=== PATIENT | female | born 1940 | race Caucasian/White ===

== ENCOUNTER 2019-10-29 09:18 | Outpatient (CLI) | payer MEDICARE, OTHER, SELFPAY ==
--- NOTE | 2019-10-29 09:32 | USCV_ITS ---
Teodoro Kylah Age: 79 Gender: F : 1940 Exam Date: 10/29/2019 09:29 Ordering Phys: Jose L Acuña MD (Andy) ([email or web address] [place] Technologist: Bessie Gerardo [place] [facility] [place] RECHECK ON LT CCA STENOSIS Risk Factors: Unknown Previous Vascular Surgery: None Right Brachial BP: / Left Brachial BP: / Right Left Velocity (cm/s) Spectral Plaque Velocity (cm/s) Spectral Plaque Syst/Diast Broadening Syst/Diast Broadening 102.00/13.20 Prox CCA 48.70 / 9.90 79.40/ 12.10 Mid CCA 51.80 / 10.40 82.70/ 18.70 Distal CCA 47.70 / 9.30 68.00/ 25.30 Prox ICA 238.50/ 45.40 Hetro 72.50/ 13.40 Mid ICA 281.80/ 47.90 86.00/ 18.80 Distal ICA 90.70 / 21.90 71.60 ECA 50.80 Hetro 1.08 ICA/CCA 5.44 Antegrade Vertebral Antegrade 35.80/ 9.90 cm/s 27.10/ 9.20 cm/s [place] Subclavian Bi 67.40 65.40 FINDINGS Elevated left ICA velocity and increased left ICA/CCA ratio which have increased since the previous exam. CONCLUSIONS 1. Increased ICA/CCA ration of 5.44 consistent with left carotid stenosis of 80-99%. 2. Elelvated left ICA velocity consistent with carotid stenosis of 70-79%. 3. Minimal stenosis <50% of the right internal carotid artery. Dr. Sophie Irene MD (Electronically Signed) Final Date: 29 October 2019 11:34 S
== END 2019-10-29 09:19 | disposition home or self-care (01) ==
LOC: RAD 09:26
PROVIDERS: Family Provider Family Medicine; PCP Family Medicine; Visit Provider Thoracic Surgery (Cardiothoracic Vascular Surgery)
DX: I65.23 Occlusion and stenosis of bilateral carotid arteries (principal)
CPT/HCPCS: 93880

== ENCOUNTER 2019-11-06 08:18 | Outpatient (CLI) | payer MEDICARE, OTHER, SELFPAY ==
--- NOTE | 2019-11-06 08:30 | CT_ITS ---
WS: [id number] CT angio neck 20170 REASON FOR EXAM: carotid stenosis TECHNIQUE: Coronal and sagittal 2-D and MIP reformations. IV CONTRAST ADMINISTERED: Visipaque 75 mL. TOTAL EXAM DLP: 977.[address] scans at [facility] use at least one of these dose optimization techniques: automat ed exposure control; mA and/or kV adjustment per patient size (includes targeted exams where dose is matched to clinical indication); or iterative reconstruction. Findings: Reconstructed images of both carotid systems show the right side shows heavy arteriosclerot ic changes but does show good flow. The extracranial carotid artery fills poorly at the bifurcation superiorly. The left carotid system shows 60% stenosis of the internal carotid artery on the left. Poor filling o f the extra carotid artery is seen. The midportion of the right common carotid shows minimal stenosis. The [place] fill poorly and was not diagnostic. There is fluid density in the right maxillary antrum air-fluid levels are seen. The jugular system was normal. There is good flow seen into the circulation of the external carotids bilaterally although the miff i mages show this vessel poorly didn't demonstrate. At the bifurcation of the carotid on the left side there is evidence of 60% stenosis at the bifurcati on. The external carotid appears to be stenosed also. The [place] poorly filled during this study. And is nondiagnostic. CT/CT angio neck 82465 IMPRESSION: 60% stenosis of the left internal carotid artery There is evidence of plaque formation throughout the right common carotid bifur cation The external carotids bilaterally did not show well on the MIPS images. But the re appears to be good circulation surrounding the facial bones and orbits.
[2019-11-06 09:11] LABS: Blood Urea Nitrogen 14 mg/dL (8-23)
[2019-11-06] MEDS: iohexol 350 mg/mL 100 mL Btl IV (09:26)
== END 2019-11-06 08:19 | disposition home or self-care (01) ==
LOC: CT 08:19
PROVIDERS: PCP Family Medicine; Visit Provider Thoracic Surgery (Cardiothoracic Vascular Surgery)
DX: I65.22 Occlusion and stenosis of left carotid artery
CPT/HCPCS: 36415; 70498; 82565; 84520

== ENCOUNTER 2020-05-17 08:26 | Outpatient (CLI) | payer MEDICARE, OTHER, SELFPAY ==
--- NOTE | 2020-05-17 08:45 | USCV_ITS ---
Teodoro Kylah Age: 80 Gender: F : 1940 Exam Date: 05/17/2020 08:21 Ordering Phys: Jose L Acuña MD (Andy) [email or web address] [place] Technologist: Ciara Weinstein [place] [facility] [place]: STENOSIS Risk Factors: Previous Vascular Surgery: Right Brachial BP: / Left Brachial BP: / Right Left Velocity (cm/s) Spectral Plaque Velocity (cm/s) Spectral Plaque Syst/Diast Broadening Syst/Diast Broadening 77.20/ 12.10 Prox CCA 94.80 / 13.20 90.40/ 13.20 Mid CCA 86.00 / 11.00 86.00/ 17.60 Distal CCA 77.20 / 14.30 90.40/ 22.10 Prox ICA 313.30/ 71.20 105.80/23.20 Mid ICA 166.20/ 43.50 103.60/20.90 Distal ICA 189.50/ 48.20 88.20 ECA 90.40 1.17 ICA/CCA 3.64 Antegrade Vertebral Antegrade 59.50/ 11.00 cm/s 105.6/ 31.10 cm/s 0 Tri Subclavian Tri 105.6 0 FINDINGS Mild to moderate heterogeneous plaques of the right bifurcation and proximal internal carotid artery. Moderate to heavy heterogeneous plaques of the left bifurcation and internal carotid artery. Antegrade flow in the vertebral arteries bilaterally. Tortuous left vertebral artery Normal flow velocities in the external carotid arteries bilaterally Normal Doppler waveforms in the subclavian arteries bilaterally CONCLUSIONS Moderate to heavy heterogeneous plaques at the left bifurcation and internal carotid arterywith velocity elevation consistent with greater than 70% stenosis Mild to moderate heterogeneous plaques at the right bifurcation and proximal internal carotid arterywith velocity elevation consistent with 16-49% stenosis. Intimal thickening in the common carotid arteries bilaterally Compared to the study from 10/29/2019, there may not be a significant change Dr Surinder Gomez MD [facility] (Electronically Signed) Final Date: 19 May 2020 07:36 S
== END 2020-05-17 08:27 | disposition home or self-care (01) ==
LOC: US 08:27
PROVIDERS: PCP Family Medicine; Visit Provider Thoracic Surgery (Cardiothoracic Vascular Surgery)
DX: I65.23 Occlusion and stenosis of bilateral carotid arteries (principal)
CPT/HCPCS: 93880

== ENCOUNTER 2020-06-23 08:38 | Outpatient (CLI) | payer MEDICARE, OTHER, SELFPAY ==
--- NOTE | 2020-06-23 09:00 | CT_ITS ---
WS: [id number] CTA NECK TECHNIQUE: Contrast enhanced CTA of the neck with coronal and sagittal reformatted images and maximum intensity projection (MIP) images. NASCET criteria utilized. CLINICAL INFORMATION: I65.23 - Occlusion and stenosis of bilateral carotid arteries COMPARISON: CTA head neck November 06, 2019 and 07 05,019 DLP: 704.[address] scans at [facility] use at least one of these dose optimization techniques: automat ed exposure control; mA and/or kV adjustment per patient size (includes targeted exams where dose is matched to clinical indication); or iterative reconstruction. FINDINGS: RIGHT: Right common carotid artery is patent. Mild atheromatous plaque right carotid bulb extending i nto the ICA. No significant stenosis. ICA is patent to the skull base. LEFT: Left common carotid artery is patent. Moderate stenosis left proximal ICA measuring approximate ly 60%. Left ICA is patent to the skull base. Stenosis is unchanged from previous. Codominant and patent vertebral arteries bilaterally. Basilar artery is patent. Normal vascularity to the [employer] territory bilaterally. Mastoid air cells are well aerated. Paranasal sinuses are well aerated. Moderate spondylitic changes cervical spine. CT/CT angio neck 11865 IMPRESSION: 1. Left proximal ICA stenosis measuring approximately 60% unchanged from 2020. 2. No significant right ICA stenosis. 3. Codominant and patent vertebral arteries bilaterally. 4. Paranasal sinuses and mastoid air cells well aerated.
[2020-06-23 09:17] LABS: Blood Urea Nitrogen 13 mg/dL (8-23)
[2020-06-23] MEDS: iohexol 350 mg/mL 100 mL Btl IV (09:23)
== END 2020-06-23 08:39 | disposition home or self-care (01) ==
LOC: RADWPI 08:41
PROVIDERS: PCP Family Medicine; Visit Provider Thoracic Surgery (Cardiothoracic Vascular Surgery)
DX: I65.23 Occlusion and stenosis of bilateral carotid arteries (principal)
CPT/HCPCS: 70498; 82565; 84520; Q9967

== ENCOUNTER 2021-01-06 10:52 | Outpatient (CLI) | payer MEDICARE, OTHER, SELFPAY ==
--- NOTE | 2021-01-06 11:00 | USCV_ITS ---
Teodoro Kylah Age: 80 Gender: F : 1940 Exam Date: 01/06/2021 11:16 Ordering Phys: Jose L Acuña MD (Andy) ([email or web address] [place]) Technologist: Exam Location: [facility] [place] Indication: cca stenosis Risk Factors: None Previous Vascular Surgery: Right Brachial BP: / Left Brachial BP: / Right Left Velocity (cm/s) Spectral Plaque Velocity (cm/s) Spectral Plaque Syst/Diast Broadening Syst/Diast Broadening 72.80/ 12.10 Prox CCA 45.90 / 8.60 66.20/ 12.10 Mid CCA 42.30 / 7.10 60.60/ 12.10 Distal CCA 41.80 / 8.10 53.60/ 10.10 Hetro Prox ICA 293.20/ 70.40 Hetro 63.80/ 14.90 Mid ICA 439.40/ 96.70 PST Hetro 63.10/ 14.90 Distal ICA 96.70 / 17.00 PST Hetro 84.90 ECA 80.60 0.88 ICA/CCA 9.58 Antegrade Vertebral Antegrade 27.10/ 4.10 cm/s 41.60/ 9.90 cm/s Bi Subclavian Tri 72.00 76.00 FINDINGS Heavy heterogeneous plaques at the left bifurcation and proximal internal carotid artery Delayed peaking low velocity waveforms in the distal ICA on the left side Mild to moderate dense plaques at the right bifurcation and proximal internal carotid artery Antegrade flow in the vertebral arteries bilaterally Normal Doppler velocities in the external, subclavian and vertebral arteries bilaterally CONCLUSIONS Heavy heterogeneous plaques at the left bifurcation and proximal internal carotid artery with velocity elevation and Doppler features consistent with a greater than 70% stenosis. Mild to moderate dense plaques at the right bifurcation and proximal internal carotid artery internal carotid artery suggesting less than 50% stenosis No significant stenosis in the vertebral, subclavian and external carotid arteries bilaterally, based on the above. Compared to the study from 05/17/2020, the stenosis appears to be more severe on the left side Dr Surinder Gomez MD [facility] (Electronically Signed) Final Date: 07 January 2021 18:19 S
== END 2021-01-06 10:53 | disposition home or self-care (01) ==
PROVIDERS: PCP Family Medicine; Visit Provider Thoracic Surgery (Cardiothoracic Vascular Surgery)
DX: I65.23 Occlusion and stenosis of bilateral carotid arteries (principal)
CPT/HCPCS: 93880

== ENCOUNTER 2021-01-26 09:45 | Outpatient (CLI) | payer MEDICARE, OTHER, SELFPAY ==
--- NOTE | 2021-01-26 10:00 | CT_ITS ---
WS: [id number] CT ANGIOGRAM CAROTID ARTERIES HISTORY: I65.23 - Occlusion and stenosis of bilateral carotid arteries. TECHNIQUE: CT angiogram is performed of the carotid arteries. During arterial injection imaging is ob tained from the skull base to the aortic arch in 1.25 mm imaging. Coronal and sagittal reformats are submitted, MIP imaging also reviewed. Additional multiplanar reformats of the carotid arteries are chamorro bmitted. NASCET criteria utilized. All CT scans at [facility] use at least one of these dose optimization techniques: automated exposure control; mA and/or kV adjustment per patient size (includ es targeted exams where dose is matched to clinical indication); or iterative reconstruction. CONTRAST: Omnipaque 350; 75 mL IV. DLP: 704.72 mGycm COMPARISON: 06/23/2020 and carotid ultrasound 01/06/2021 Right carotid: Common carotid artery: Arises normally from the innominate artery. No significant plaque or stenosis. Internal carotid artery: Small amount of calcified plaque and intimal thickening at the bifurcation. No significant stenosis. External carotid artery: Patent. Left carotid: Common carotid artery: Arises normally from the aortic arch. No significant stenosis. Internal carotid artery: Calcified plaque and intimal thickening at the carotid bifurcation causing n arrowing and stenosis of the proximal ICA. Stenosis calculated at 70%. Mild increase as compared to t he prior CT angiogram. External carotid artery: Patent. Right vertebral artery: Unremarkable. Left vertebral artery: Unremarkable. Arises normally from the left subclavian artery. Subclavian arteries: No stenosis or abnormality identified. Upper thorax: Normal. Thyroid gland: Normal. Osseous structures: Mild degenerative disc disease and spondylosis throughout the cervical spine. Skull base: Negative. CT/CT angio neck 72755 IMPRESSION: 1. Proximal LEFT ICA stenosis 70%. Mild progression of the stenosis since 2020. 2. Minimal atherosclerosis RIGHT ICA with no significant stenosis.
[2021-01-26 10:35] LABS: Blood Urea Nitrogen 19 mg/dL (8-23)
[2021-01-26] MEDS: iohexol 350 mg/mL 100 mL Btl IV (10:46)
== END 2021-01-26 09:46 | disposition home or self-care (01) ==
PROVIDERS: PCP Family Medicine; Visit Provider Thoracic Surgery (Cardiothoracic Vascular Surgery)
DX: I65.23 Occlusion and stenosis of bilateral carotid arteries (principal)
CPT/HCPCS: 70498; 82565; 84520; Q9967

== ENCOUNTER 2021-08-10 13:09 | Outpatient (CLI) | payer MEDICARE, OTHER, SELFPAY ==
--- NOTE | 2021-08-10 13:30 | USCV_ITS ---
Teodoro Kylah Age: 81 Gender: F : 1940 Exam Date: 08/10/2021 13:40 Ordering Phys: Jose L Acuña MD (Andy) ([email or web address] [place] Technologist: NICK [place] [facility] [place]: Occlusion and stenosis of bilateral carotid arteries Risk Factors: Previous Vascular Surgery: Right Brachial BP: / Left Brachial BP: / Right Left Velocity (cm/s) Spectral Plaque Velocity (cm/s) Spectral Plaque Syst/Diast Broadening Syst/Diast Broadening 114.20/9.30 Prox CCA 60.70 / 10.30 66.80/ 10.10 Mid CCA 59.60 / 9.90 70.70/ 10.90 Distal CCA 62.70 / 8.40 64.20/ 14.80 Prox ICA 3.13 / 44.10 63.20/ 13.00 Mid ICA 311.50/ 48.50 66.40/ 14.30 Distal ICA 87.40 / 12.80 87.00 ECA 49.50 0.94 ICA/CCA 5.26 Antegrade Vertebral Antegrade 40.10/ 9.10 cm/s 45.40/ 10.50 cm/s Bi Subclavian Bi 70.80 67.60 FINDINGS Comparison:. 01/06/21. Marked elevation of velocity left ICA, similar to prior study. Calcified plaque in the proximal ICA. Minimal elevation right ICA velocity. Anegrade vertebral arteries. CONCLUSIONS Left ICA stenosis 70-99%. No interval change in stenosis since prior exam. Right ICA stenosis < 50%. Dr. Gila Carpenter DO (Electronically Signed) Final Date: 10 August 2021 14:45 S
== END 2021-08-10 13:10 | disposition home or self-care (01) ==
LOC: RAD 13:12
PROVIDERS: PCP Family Medicine; Visit Provider Thoracic Surgery (Cardiothoracic Vascular Surgery)
DX: I65.23 Occlusion and stenosis of bilateral carotid arteries (principal)
CPT/HCPCS: 93880

== ENCOUNTER → 2021-09-08 09:12 | Outpatient (BNVA) | payer MEDICARE, OTHER, SELFPAY | PROVIDERS: PCP Family Medicine; Visit Provider Thoracic Surgery (Cardiothoracic Vascular Surgery) | DX: I65.22 Occlusion and stenosis of left carotid artery (principal); Z79.82 Long term (current) use of aspirin; I10 Essential (primary) hypertension | CPT/HCPCS: 99213 ==

== ENCOUNTER → 2021-10-05 11:02 | Outpatient (BNVA) | payer MEDICARE, OTHER, SELFPAY | PROVIDERS: PCP Family Medicine; Visit Provider Internal Medicine Cardiovascular Disease | DX: R00.2 Palpitations (principal); I10 Essential (primary) hypertension; R42 Dizziness and giddiness; E78.2 Mixed hyperlipidemia; I65.22 Occlusion and stenosis of left carotid artery; F41.9 Anxiety disorder, unspecified | CPT/HCPCS: 99214 ==

== ENCOUNTER 2022-04-04 06:06 | Outpatient (CLI) | payer MEDICARE, OTHER, SELFPAY ==
--- NOTE | 2022-04-04 06:30 | USCV_ITS ---
Kylah Valerio Age: 81 Gender: F : 1940 Exam Date: 04/04/2022 06:16 Ordering Phys: Jose L Acuña MD (Andy) ([email or web address] [place]) Technologist: Scott Stapleton Exam [place] [facility] [place] Indication: lt ica stenosis Risk Factors: Previous Vascular Surgery: Right Brachial BP: / Left Brachial BP: / Right Left Velocity (cm/s) Spectral Plaque Velocity (cm/s) Spectral Plaque Syst/Diast Broadening Syst/Diast Broadening 85.45/ 12.65 Prox CCA 70.60 / 15.40 80.50/ 17.60 Mid CCA 66.20 / 8.80 87.10/ 17.60 Distal CCA 52.90 / 11.00 93.70/ 24.30 Prox ICA 373.10/ 88.30 Marked Hetro 87.65/ 20.40 Mid ICA 430.70/ 75.20 Marked Hetro 95.90/ 20.95 Distal ICA 122.30/ 30.60 101.40 ECA 87.10 1.19 ICA/CCA 6.10 Antegrade Vertebral Antegrade 56.00/ 13.00 cm/s 89.90/ 28.80 cm/s [place] Subclavian Bi 71.70 104.3 0 CONCLUSIONS Right ICA stenosis <50%. Mild atheromatous plaque right carotid bulb/ICA. Left ICA stenosis 70-99%. Severe atheromatous plaque left carotid bulb/ICA. Recommend CTA. Velocities progressed since 08/10/21 Normal antegrade Doppler flow noted in the right vertebral artery. Normal antegrade Doppler flow noted in the left vertebral artery. Joe Gibson MD (Electronically Signed) Final Date: 04 April 2022 10:04 S
== END 2022-04-04 06:07 | disposition home or self-care (01) ==
LOC: RAD 06:08
PROVIDERS: PCP Family Medicine; Visit Provider Thoracic Surgery (Cardiothoracic Vascular Surgery)
DX: I65.23 Occlusion and stenosis of bilateral carotid arteries (principal)
CPT/HCPCS: 93880

== ENCOUNTER → 2022-04-05 14:18 | Outpatient (BNVA) | payer MEDICARE, OTHER, SELFPAY | PROVIDERS: PCP Family Medicine; Visit Provider Thoracic Surgery (Cardiothoracic Vascular Surgery) | DX: I65.22 Occlusion and stenosis of left carotid artery (principal); I10 Essential (primary) hypertension | CPT/HCPCS: 99213 ==

== ENCOUNTER → 2022-07-05 13:41 | Outpatient (BNVA) | payer MEDICARE, OTHER, SELFPAY | PROVIDERS: PCP Family Medicine; Visit Provider Internal Medicine Cardiovascular Disease | DX: R00.2 Palpitations (principal); I10 Essential (primary) hypertension; E78.2 Mixed hyperlipidemia; I65.22 Occlusion and stenosis of left carotid artery; F41.9 Anxiety disorder, unspecified | CPT/HCPCS: 99214; Q3014 ==

== ENCOUNTER 2022-09-15 14:56 | Outpatient (CLI) | payer MEDICARE, OTHER, SELFPAY ==
--- NOTE | 2022-09-15 15:07 | USCV_ITS ---
Teodoro Kylah Age: 82 Gender: F : 1940 Exam Date: 09/15/2022 15:28 Ordering Phys: Jose L Acuña MD (Andy) ([email or web address] [place] Technologist: [place] [facility] [place]: cca disease on lt Risk Factors: Previous Vascular Surgery: Right Brachial BP: / Left Brachial BP: / Right Left Velocity (cm/s) Spectral Plaque Velocity (cm/s) Spectral Plaque Syst/Diast Broadening Syst/Diast Broadening 81.60/ 9.90 Prox CCA 78.90 / 11.80 69.50/ 16.50 Mid CCA 67.70 / 14.50 71.70/ 13.20 Hetro Distal CCA 74.30 / 17.70 Hetro 95.90/ 22.10 Prox ICA 318.10/ 42.10 Hetro 102.50/23.20 Mid ICA 351.10/ 49.70 100.30/18.70 Distal ICA 106.80/ 13.70 86.00 ECA 80.30 1.26 ICA/CCA 4.45 Antegrade Vertebral Antegrade 44.70/ 11.80 cm/s 52.10/ 13.70 cm/s Tri Subclavian Tri 47.30 73.50 FINDINGS comparison 04/11 Velocities are similar to previous CONCLUSIONS Right ICA stenosis <50%. Moderate atheromatous plaque right carotid bulb/ICA. Left ICA stenosis 70-99%. Severe atheromatous plaque left carotid bulb/ICA. Normal antegrade Doppler flow noted in the right vertebral artery. Normal antegrade Doppler flow noted in the left vertebral artery. Joe Gibson MD (Electronically Signed) Final Date: 15 September 2022 16:11 S
== END 2022-09-15 14:57 | disposition home or self-care (01) ==
LOC: RAD 15:00
PROVIDERS: PCP Family Medicine; Visit Provider Thoracic Surgery (Cardiothoracic Vascular Surgery)
DX: I65.22 Occlusion and stenosis of left carotid artery (principal)
CPT/HCPCS: 93880

== ENCOUNTER → 2023-01-31 10:31 | Outpatient (BNVA) | payer MEDICARE, OTHER, SELFPAY | PROVIDERS: PCP Family Medicine; Visit Provider Internal Medicine Cardiovascular Disease | DX: R00.2 Palpitations (principal); I10 Essential (primary) hypertension; E78.2 Mixed hyperlipidemia; I65.22 Occlusion and stenosis of left carotid artery; F41.9 Anxiety disorder, unspecified | CPT/HCPCS: 99214 ==

== ENCOUNTER 2023-02-28 11:31 | Outpatient (CLI) | payer MEDICARE, OTHER, SELFPAY ==
--- NOTE | 2023-02-28 | USCV_ITS ---
Teodoro Kylah Age: 82 Gender: F : 1940 Exam Date: 02/28/2023 11:57 Ordering Phys: Jose L Acuña MD (Andy) ([email or web address] [place]) Technologist: CT Exam Location: [facility] Indication: stenosis Risk Factors: Previous Vascular Surgery: Right Brachial BP: / Left Brachial BP: / Right Left Velocity (cm/s) Spectral Plaque Velocity (cm/s) Spectral Plaque Syst/Diast Broadening Syst/Diast Broadening 80.50/ 14.30 Prox CCA 76.10 / 14.30 85.40/ 15.40 Mid CCA 66.70 / 11.90 62.70/ 13.80 Distal CCA 45.80 / 10.60 51.40/ 14.60 Prox ICA 221.70/ 51.30 42.50/ 12.70 Mid ICA 131.90/ 23.50 60.90/ 14.00 Distal ICA 68.40 / 13.10 57.70 ECA 64.00 0.71 ICA/CCA 2.91 Antegrade Vertebral Antegrade 34.10/ 8.40 cm/s 54.80/ 12.80 cm/s Bi Subclavian Bi 73.00 70.40 FINDINGS Comparison:. 09/15/22 Left ICA velocity slightly decreased as compared to the prior exam. No change right ICA. Bilateral atherosclerotic plaque in the bifurcations. Antegrade vertebral arteries. CONCLUSIONS Left ICA stenosis 70-99%. Velocity decrease slightly since the prior exam. Stenosis closer to 70%. Right ICA stenosis < 50%. Dr. Gila Carpenter DO (Electronically Signed) Final Date: 28 February 2023 13:40 S
== END 2023-02-28 11:32 | disposition home or self-care (01) ==
LOC: RAD 11:35
PROVIDERS: PCP Family Medicine; Visit Provider Thoracic Surgery (Cardiothoracic Vascular Surgery)
DX: I65.23 Occlusion and stenosis of bilateral carotid arteries (principal)
CPT/HCPCS: 93880; 99213

== ENCOUNTER 2023-02-28 11:45 | Outpatient (CLI) | payer MEDICARE, OTHER, SELFPAY ==
--- NOTE | 2023-02-28 11:45 | USCV_ITS ---
Teodoro Kylah Age: 82 Gender: F : 1940 Exam Date: 02/28/2023 11:57 Ordering Phys: Jose L Acuña MD (Andy) ([email or web address] [place] Technologist: CT Exam Location: [facility] [place] Indication: stenosis Risk Factors: Previous Vascular Surgery: Right Brachial BP: / Left Brachial BP: / Right Left Velocity (cm/s) Spectral Plaque Velocity (cm/s) Spectral Plaque Syst/Diast Broadening Syst/Diast Broadening 80.50/ 14.30 Prox CCA 76.10 / 14.30 85.40/ 15.40 Mid CCA 66.70 / 11.90 62.70/ 13.80 Distal CCA 45.80 / 10.60 51.40/ 14.60 Prox ICA 221.70/ 51.30 42.50/ 12.70 Mid ICA 131.90/ 23.50 60.90/ 14.00 Distal ICA 68.40 / 13.10 57.70 ECA 64.00 0.71 ICA/CCA 2.91 Antegrade Vertebral Antegrade 34.10/ 8.40 cm/s 54.80/ 12.80 cm/s Bi Subclavian Bi 73.00 70.40 FINDINGS Comparison:. 09/15/22 Left ICA velocity slightly decreased as compared to the prior exam. No change right ICA. Bilateral atherosclerotic plaque in the bifurcations. Antegrade vertebral arteries. CONCLUSIONS Left ICA stenosis 70-99%. Velocity decrease slightly since the prior exam. Stenosis closer to 70%. Right ICA stenosis < 50%. Dr. Gila Carpenter DO (Electronically Signed) Final Date: 28 February 2023 13:40 S
== END 2023-02-28 11:46 | disposition home or self-care (01) ==
LOC: RAD 05-24 13:44
PROVIDERS: PCP Family Medicine; Visit Provider Thoracic Surgery (Cardiothoracic Vascular Surgery)
DX: I65.23 Occlusion and stenosis of bilateral carotid arteries (principal)
CPT/HCPCS: 93880

== ENCOUNTER → 2023-03-29 12:42 | Outpatient (BNVA) | payer MEDICARE, OTHER, SELFPAY | PROVIDERS: PCP Family Medicine; Visit Provider Thoracic Surgery (Cardiothoracic Vascular Surgery) | DX: I65.22 Occlusion and stenosis of left carotid artery (principal); I10 Essential (primary) hypertension | CPT/HCPCS: 99213 ==

== ENCOUNTER → 2024-02-25 08:42 | Outpatient (BNVA) | payer MEDICARE, OTHER, SELFPAY | PROVIDERS: PCP Family Medicine; Visit Provider Internal Medicine Cardiovascular Disease | DX: I10 Essential (primary) hypertension (principal); I65.22 Occlusion and stenosis of left carotid artery; E78.2 Mixed hyperlipidemia | CPT/HCPCS: 99214 ==

== ENCOUNTER 2024-03-10 07:44 | Outpatient (CLI) | payer MEDICARE, OTHER, SELFPAY ==
--- NOTE | 2024-03-10 08:00 | CTR_ITS ---
PROCEDURE INFORMATION: Exam: CTA Neck With Contrast Exam date and time: 03/10/2024 8:22 AM Age: 83 years old Clinical indication: Condition or disease; Occlusion or stenosis of cerebral arteries; Additional info: Bilateral carotid stenosis TECHNIQUE: Imaging protocol: Computed tomographic angiography of the neck with contrast. Exam focused on the cervical segments of the vasculature. 3D rendering (Not supervised by radiologist): MIP and/or 3D reconstructed images were created by the technologist. Radiation optimization: All CT scans at this facility use at least one of these dose optimization techniques: automated exposure control; mA and/or kV adjustment per patient size (includes targeted exams where dose is matched to clinical indication); or iterative reconstruction. Contrast material: OMNI 350; Contrast volume: 100 ml; Contrast route: INTRAVENOUS (IV); COMPARISON: CT angio neck [id number] 01/26/2021 10:40 AM RADIATION DOSE METRICS: Total DLP (mGy-cm): 154.92 FINDINGS: Right common carotid artery: No stenosis. No dissection or occlusion. Right internal carotid artery: Minimal plaque. No high-grade stenosis. Right external carotid artery: Minimal plaque. No high-grade stenosis. Left common carotid artery: No stenosis. No dissection or occlusion. Left internal carotid artery: Moderate to severe plaque involving the carotid bulb and proximal left internal carotid artery. Estimated stenosis 70%. Findings are similar to that seen on prior exam. Left external carotid artery: Minimal plaque. No high-grade stenosis. Right vertebral artery: No stenosis. No dissection or occlusion. Left vertebral artery: No stenosis. No dissection or occlusion. Paranasal sinuses: There is minimal mucosal thickening involving the paranasal sinuses. No air-fluid levels are identified. Soft tissues: Normal. No significant soft tissue swelling. Bones/joints: No acute fracture. CT/CT angio neck [id number] IMPRESSION: 1. Moderate to severe plaque involving the left carotid bulb and proximal left internal carotid artery. Estimated stenosis is 70%. Findings are similar to that seen on prior exam from 01/26/2021. REFERENCES: NASCET CRITERIA. The degree of stenosis in the cervical segment of the internal carotid artery is based on NASCET criteria. Normal is no stenosis. Mild is less than 50% stenosis. Moderate is 50-69% stenosis. Severe is 70% to 99% stenosis. Total occlusion is no detectable patent lumen.
[2024-03-10] MEDS: iohexol 350 mg/mL 500 mL Btl (per mL) IV (08:35)
[2024-03-10 09:20] LABS: Blood Urea Nitrogen 18 mg/dL (8-23)
== END 2024-03-10 07:45 | disposition home or self-care (01) ==
LOC: RAD 07:45
PROVIDERS: PCP Family Medicine; Visit Provider Internal Medicine Cardiovascular Disease
DX: I65.22 Occlusion and stenosis of left carotid artery (principal)
CPT/HCPCS: 70498; 82565; 84520

== ENCOUNTER 2024-06-20 08:00 | Oncology outpatient (recurring) (ONCR) | payer MEDICARE, OTHER, SELFPAY ==
[2024-06-11 08:27] VITALS: BP 122/73; PULSE 56; RESP 16; TEMP 36.4; O2SAT 99
[2024-06-11] MEDS: iron sucrose 200 MG in sodium chloride 0.9% 50 ML 240 MG IV (08:33)
[2024-06-11 09:17] VITALS: BP 120/68; PULSE 55; RESP 16; TEMP 36.4; O2SAT 99
[2024-06-13 08:05] VITALS: BP 147/73; PULSE 65; RESP 17; TEMP 36.7; O2SAT 99
[2024-06-13] MEDS: iron sucrose 200 MG in sodium chloride 0.9% 50 ML 240 MG IV (08:43)
[2024-06-13 09:30] VITALS: BP 144/70; PULSE 54; RESP 18; TEMP 36.5; O2SAT 98
[2024-06-16 14:00] VITALS: BP 127/74; PULSE 67; RESP 16; TEMP 35.9; O2SAT 99
[2024-06-16] MEDS: iron sucrose 200 MG in sodium chloride 0.9% 50 ML 240 MG IV (14:01)
[2024-06-16] MEDS: sodium chloride 0.9% 250 ML 75 ML IV (14:01)
[2024-06-16 14:21] VITALS: BP 118/76; PULSE 58; RESP 16; TEMP 36.3; O2SAT 98
[2024-06-18 08:00] VITALS: BP 121/69; PULSE 60; RESP 18; TEMP 36.6; O2SAT 99
[2024-06-18] MEDS: iron sucrose 200 MG in sodium chloride 0.9% 50 ML 120 MG IV (08:10)
[2024-06-18 08:53] VITALS: BP 135/70; PULSE 78; RESP 18; TEMP 36.6; O2SAT 99
[2024-06-20] MEDS: iron sucrose 200 MG in sodium chloride 0.9% 50 ML 240 MG IV (08:20)
[2024-06-20 08:46] VITALS: BP 126/66; PULSE 61; RESP 16; TEMP 36.3; O2SAT 99
== END 2024-06-20 23:59 | disposition home or self-care (01) ==
PROVIDERS: PCP Family Medicine; Visit Provider Family Medicine
DX: Z53.9 Procedure and treatment not carried out, unspecified reason (principal); D50.8 Other iron deficiency anemias; Z79.899 Other long term (current) drug therapy
CPT/HCPCS: 96365; J1756; J7050

== ENCOUNTER → 2025-02-17 15:18 | Outpatient (BNVA) | payer MEDICARE, OTHER, SELFPAY | PROVIDERS: PCP Family Medicine; Visit Provider Internal Medicine Cardiovascular Disease | DX: I65.22 Occlusion and stenosis of left carotid artery (principal); I10 Essential (primary) hypertension; E78.5 Hyperlipidemia, unspecified; R00.2 Palpitations | CPT/HCPCS: 99214 ==

== ENCOUNTER 2025-04-27 13:21 | Inpatient (IN) | payer MEDICARE, OTHER, SELFPAY ==
[2025-04-27 13:22] VITALS: BP 143/45; PULSE 66; RESP 16; TEMP 36.6; O2SAT 99; BMI 23.2
--- NOTE | 2025-04-27 13:27 | XR_ITS ---
WS: [id number] XR hip LT 2-3V wo/w pel* [id number] REASON FOR EXAM: trauma FINDINGS: Mildly displaced intertrochanteric and trochanteric fracture which involves the lesser trochanter which is not significantly displaced. XR/XR hip LT 2-3V wo/w pel* [id number] IMPRESSION: Left hip fracture as above.
--- NOTE | 2025-04-27 13:46 | XR_ITS ---
WS: [id number] XR chest 1V portable [id number] REASON FOR EXAM: dyspnea/cough FINDINGS: The chest is similar to the previous examination of 06/27/2018. Mild tortuosity and ectasia of the thoracic aorta. Normal heart size. Calcified granulomatous disease bilaterally. No acute pulmonary parenchymal or pleural abnormality. Moderate degenerative spondylosis in the thoracic spine. XR/XR chest 1V portable [id number] IMPRESSION: Stable chest without acute abnormality.
[2025-04-27 14:16] LABS: Hematocrit 35.4 % (36-47); Hemoglobin 11.80 g/dL (11.27-16.99); Mean Corpuscular HGB Conc 33.3 g/dL (30-55); Mean Corpuscular Hemoglobin 31.5 pg (27-33); Mean Corpuscular Volume 94.4 fl (85-98); Nucleated Red Blood Cells % 0 %; Platelet Count 258 10^3/cmm (157-399); Red Blood Count 3.75 10^6/uL (3.85-5.65); White Blood Count 11.06 10^3/uL (3.29-11.43)
[2025-04-27 14:28] LABS: INR 0.90 (0.8-1.2); Partial Thromboplastin Time 28.6 SECONDS (23.9-36.7); Prothrombin Time 12.80 SECONDS (12.1-14.9)
[2025-04-27 14:33] LABS: Alanine Aminotransferase 20 U/L (0-33); Albumin Level 4.6 g/dL (3.5-5.2); Alkaline Phosphatase 118 U/L (35-105); Anion Gap 12.0 (5-19); Aspartate Amino Transferase 29 U/L (0-32); Blood Urea Nitrogen 16 mg/dL (8-23); Calcium 9.6 mg/dL (8.5-10.5); Carbon Dioxide 29 mmol/L (22-29); Chloride 98 mmol/L (98-107); Globulin 3.0 g/dL (1.3-4.6); Glucose 150 mg/dL (65-115); Osmolality Calculated 284 mOsm/kg (285-295); Potassium 4.0 mmol/L (3.5-5.1); Sodium 135 mmol/L (136-145); Total Protein 7.6 g/dL (6.6-8.7)
[2025-04-27 14:34] LABS: Glucose Urine UA Negative (Normal); Nitrate Urine Negative (Negative); Specific Gravity, Urine 1.007 (1.005-1.030)
[2025-04-27 14:39] LABS: Add Urine Microscopic? YES
--- NOTE | 2025-04-27 14:56 | PM.HP ---
Providers/Chief Complaint Primary Care Provider: Robert Rutledge MD Chief Complaint: fall - left hip pain History of Present Illness Kylah Valerio is a 85 year old female with a past medical history of hypertension, hyperlipidemia, carotid artery stenosis, glaucoma who fell earlier today sustaining a mildly displaced left intertrochanteric and trochanteric fracture. Patient was seen and treated in the ER by provider Dr. Maldonado who contacted orthopedic surgeon who graciously agrees for consultation. Patient is not on any anticoagulation, does take a baby aspirin at night. Patient denies sustaining injuries in the other place, did not hit her head and did not lose consciousness. Patient continues to endorse left hip pain and inability to move her leg without any pain. Patient denies current chest pain, shortness of breath, nausea, vomiting, diarrhea, abdominal pain, dark or tarry stools, any type of bleeding, recent illness, difficulty urinating, or syncope. Patient states that she ate at 1130 today, unsure whether they will take her to surgery this afternoon or tomorrow morning. Patient is agreeable to surgical interventions, admission with continued medical management. Review of Systems General: Reports: 10 or more systems reviewed and unremarkable except in HPI and below Medications/Allergies Home Medications ?Medication ?Instructions ?Recorded ?Confirmed ?Last Taken ?Type aspirin 81 mg tablet,delayed 81 mg PO DAILY 11/03/19 04/27/25 04/26/25 20:00 History release lovastatin 20 mg tablet 10 mg PO DAILY 11/03/19 04/27/25 04/27/25 08:00 History ascorbic acid (vitamin C) 500 mg 500 mg PO DAILY 07/05/22 04/27/25 04/27/25 08:00 History capsule magnesium oxide 250 mg PO DAILY 07/05/22 04/27/25 04/27/25 08:00 History cetirizine 10 mg capsule (All Day 10 mg PO DAILY PRN allergies 02/25/24 04/27/25 Unknown History Allergy (cetirizine)) metoprolol tartrate 25 mg tablet 12.5 mg PO BID 02/25/24 04/27/25 04/27/25 08:00 History amlodipine 10 mg tablet 10 mg PO DAILY #90 tabs 02/17/25 04/27/25 04/27/25 08:00 Rx latanoprost 0.005 % eye drops 1 drp ophthalmic (eye) DAILY 02/17/25 04/27/25 04/26/25 History cholecalciferol (vitamin D3) 50 50 mcg PO DAILY 04/27/25 04/27/25 04/26/25 20:00 History mcg (2,000 unit) tablet (Vitamin D3) vhdrrcdhshjj-ewiohwao-crowoni-folic 1 tab PO DAILY 04/27/25 04/27/25 04/27/25 08:00 History acid 400 mcg-vit K1 20 mcg tablet Allergies Allergy/AdvReac Type Severity Reaction Status Date / Time Sulfa (Sulfonamide Allergy Unknown Verified 04/27/25 13:28 Antibiotics) levofloxacin (From Levaquin) AdvReac Mild Thrush Verified 04/27/25 13:28 PFSH Acute PFSH: Medical History (Updated 04/27/25 @ 15:04 by Nataly Thakur NP) Carotid artery stenosis Anxiety HTN (hypertension) Hyperlipidemia Family History Other Stroke Social History Smoking and tobacco/nicotine status: never used tobacco/nicotine Alcohol intake: never Substance/Drug Use: never Vitals/I&O/Wt Last Vital Signs Temp 97.9 F 04/27/25 13:22 Pulse 66 04/27/25 13:22 Resp 16 04/27/25 13:22 BP 143/45 04/27/25 13:22 Pulse Ox 99 04/27/25 13:22 O2 Del Method Room Air 04/27/25 13:22 04/26/25 04/27/25 04/27/25 22:59 06:59 14:59 Intake Total 0 / 0 Balance 0 / 0 Weight last 48 hrs Weight 52.163 kg Physical Exam Narrative: Well-groomed 85-year-old female laying in bed with left hip pain with movement but otherwise in no apparent distress. Const: COMMON NORMALS: no acute distress, patient oriented x3, alert and well nourished HENMT: COMMON NORMALS: normocephalic, Normal external nose present, moist oral mucous membranes and dentition normal Eye: COMMON NORMALS: Equal, round and reactive pupils present Neck/C-Spine: COMMON NORMALS: full ROM and no lymphadenopathy Resp: COMMON NORMALS: normal respiratory effort and clear to auscultation bilaterally Cardio: COMMON NORMALS: no JVD, regular rate, regular rhythm, S1 normal heart sound present and S2 normal heart sound present GI: COMMON NORMALS: Normal to inspection, nondistended, normoactive bowel sounds present Extremity: NARRATIVE EXTREMITY EXAM: Left leg with outward rotation mildly shortened compared to right leg left hip tenderness to palpation Neuro: COMMON NORMALS: patient oriented x3 and CN's II-XII intact bilaterally Psych: COMMON NORMALS: mental status grossly normal Skin: COMMON NORMALS: no rashes or lesions noted and turgor normal Urinary Catheter Management: Estes: Cath Placed During This Visit: yes Urinary Catheter Date of Insertion: 04/27/25 Urinary Catheter Time of Insertion: 14:06 Data 04/27/25 14:04 04/27/25 14:04 A&P Assessment and plan 1. Intertrochanteric fracture of left hip: 2. HTN (hypertension): 3. Glaucoma: 4. Hyperlipidemia: 5. Carotid artery stenosis: 6. Other iron deficiency anemias: Plan: Left hip intertrochanteric and trochanteric fracture - Non-weight bearing Left leg - Fall precautions - Greatly appreciate orthopedic surgical management with - Multi-modal pain control - Appreciate physical therapy and Occupational Therapy evaluation and recommendations postoperatively Essential hypertension - Admitting blood pressure 143/45 - Resume home medications metoprolol, amlodipine, lovastatin Glaucoma - Continue home dosing timolol Hx of Iron defeciency anemia - Pending iron/TIBC - Admitting hemoglobin 11.80 - Monitor and transfuse for hemoglobin less than 7.0 Hx of Hyperlipidemia Carotid stenosis - Does not take statin - Daily ASA 81mg, taken last night VTE PPx: SCDs, ASA GI PPx: PPI CODE STATUS: Full code PDMP PDMP Reviewed: Last Reviewed 04/27/25 16:06 by Nataly Thakur NP Attestations Medical Necessity Statement*: Patient will be admitted inpatient with expectation of greater than 2 midnights secondary to hip fracture, orthopedic surgical intervention, PT/OT postoperatively, pain control and medical management. and High Time for a total of 75 minutes, includes reviewing past or interval history, examining/interviewing patient, placing orders, counseling patient/family/other support, updating patient/family/other support, discussing plan of care with staff, communicating with other healthcare providers, documenting encounter and coordinating care Diagnoses Intertrochanteric fracture of left hip S72.142A HTN (hypertension) I10 Glaucoma H40.9 Hyperlipidemia E78.5 Carotid artery stenosis I65.29 Other iron deficiency anemias D50.8
[2025-04-27 15:05] VITALS: BP 138/41; O2SAT 96
--- NOTE | 2025-04-27 15:19 | W.ED.EXTPRO ---
HPI - Extremity Problem General: Chief complaint: Extremity Injury, Lower Stated complaint: fall - left hip pain Time Seen by Provider: 04/27/25 13:26 History of Present Illness: 85-year-old female presents emergency room after a fall. She fell at home while she was trying to crush her canned by standing on it. She initially stood up 1 foot then went to stand on it with 2 feet and eventually bowel. She is complaining of severe left hip pain unable to move her hip she crawled back into her home proceeded been out in her garage on a ramp when she fell. She was able to contact family members who ultimately called EMS she denies any other injury did not strike her head no loss consciousness no neck pain no injury to her wrist or shoulders. Associated symptoms: Deny chest pain, fever(s) or rash Related Data Home Medications ?Medication ?Instructions ?Recorded ?Confirmed aspirin 81 mg tablet,delayed 81 mg PO DAILY 11/03/19 04/27/25 release lovastatin 20 mg tablet 10 mg PO DAILY 11/03/19 04/27/25 ascorbic acid (vitamin C) 500 mg 500 mg PO DAILY 07/05/22 04/27/25 capsule magnesium oxide 250 mg PO DAILY 07/05/22 04/27/25 cetirizine 10 mg capsule (All Day 10 mg PO DAILY PRN allergies 02/25/24 04/27/25 Allergy (cetirizine)) metoprolol tartrate 25 mg tablet 12.5 mg PO BID 02/25/24 04/27/25 latanoprost 0.005 % eye drops 1 drp ophthalmic (eye) DAILY 02/17/25 04/27/25 cholecalciferol (vitamin D3) 50 50 mcg PO DAILY 04/27/25 04/27/25 mcg (2,000 unit) tablet (Vitamin D3) pkcchdlypmvm-pgnpjerp-dwiscwr-folic 1 tab PO DAILY 04/27/25 04/27/25 acid 400 mcg-vit K1 20 mcg tablet Previous Rx's ?Medication ?Instructions ?Recorded amlodipine 10 mg tablet 10 mg PO DAILY #90 tabs 02/17/25 Allergies Allergy/AdvReac Type Severity Reaction Status Date / Time Sulfa (Sulfonamide Allergy Unknown Verified 04/27/25 13:28 Antibiotics) levofloxacin (From Levaquin) AdvReac Mild Thrush Verified 12/08/25 13:28 Review of Systems Const: Denies: fever(s) or chills Card: Denies: chest pain Resp: Denies: dyspnea GI: Denies: abdominal pain : Denies: dysuria, urinary frequency or urinary urgency Musc: Reports: joint pain; Denies: neck pain or back pain Skin/Breast: Denies: rash PFSH ED PFSH: Medical History Carotid artery stenosis Anxiety HTN (hypertension) Hyperlipidemia Family History Other Stroke Social History Smoking and tobacco/nicotine status: never used tobacco/nicotine Alcohol intake: never Substance/Drug Use: never Physical Exam Const: GENERAL APPEARANCE: cooperative ORIENTATION/CONSCIOUSNESS: Yes awake, Yes oriented to person, Yes oriented to place and Yes oriented to time HENMT: COMMON NORMALS: normocephalic, atraumatic and hearing grossly normal bilaterally HEAD & SCALP: normocephalic and atraumatic Resp: COMMON NORMALS: normal respiratory effort, No retractions, No use of accessory muscles and clear to auscultation bilaterally AUSCULTATION: clear to auscultation bilaterally Cardio: COMMON NORMALS: regular rate, regular rhythm and No murmurs present (Cardio) RATE: regular rate RHYTHM: regular rhythm GI: COMMON NORMALS: Soft to palpation and No hepatosplenomegaly present AUSCULTATION: Yes normoactive bowel sounds PALPATION: Yes Soft to palpation, No Tenderness to palpation present (GI), No Guarding due to palpation present (GI) and Yes No hepatosplenomegaly present Extremity: COMMON NORMALS: capillary refill normal, no clubbing, cyanosis or edema, no calf tenderness and no pedal edema OTHER: External rotation left leg femoral pulse and dorsalis pedis pulse normal sensation normal unable to move the left hip Neuro: SENSORIUM/ORIENTATION: Yes oriented to person, Yes oriented to place and Yes oriented to time Skin: COMMON NORMALS: no rashes or lesions noted GENERAL SKIN EXAM: no rashes or lesions noted Course Vital Signs: Vital signs: Vital Signs Temperature 97.8 F 04/28/25 07:46 Pulse Rate 63 04/28/25 07:46 Respiratory Rate 18 04/28/25 07:46 Blood Pressure 119/67 04/28/25 07:46 Pulse Oximetry 94 04/28/25 07:46 Oxygen Delivery Me thod Room Air 04/28/25 07:46 Oxygen Flow Rate 2 04/28/25 06:08 MDM - Extremity (Nontraumatic) Medical Decision Making Medical decision making Social determinants: Good social support from local family members does live alone I reviewed the patient's medical record. I reviewed the patient's current home meds. Alternate historians: Daughter at the bedside Differential diagnosis: Left hip fracture versus contusion Lab Review: Labs reviewed mild anemia no other significant findings chemistry CBC UA reviewed Imaging: Chest x-ray normal left hip x-ray shows intertrochanteric hip fracture mildly displaced Assessment of risk Level of risk: High Hospitalization considerations: Patient require hospitalization for ORIF left hip fracture Reexamination: Pain control improved with medications given Assessment and plan: Patient had mechanical fall at home with a left intertrochanteric hip fracture no other traumatic findings. Discussed with hospitalist as well as with orthopedist. Her last meal was shortly before the fall. Dr. Guevara will see the patient anticipate surgery in the AM. Orders written for admission. Patient has no other injury and is otherwise stable. Lab Data 04/28/25 05:24 04/28/25 05:24 Radiology Impressions Hip/Pelvis X-Ray 04/27/25 13:27 IMPRESSION: Left hip fracture as above. Chest X-Ray 04/27/25 13:46 IMPRESSION: Stable chest without acute abnormality. Laboratory Results WBC 11.06 10^3/uL (3.29-11.43) 04/27/25 14:04 RBC 3.75 10^6/uL (3.85-5.65) L 04/27/25 14:04 Hgb 11.80 g/dL (11.27-16.99) 04/27/25 14:04 Hct 35.4 % (36-47) L 04/27/25 14:04 MCV 94.4 fl (85-98) 04/27/25 14:04 MCH 31.5 pg (27-33) 04/27/25 14:04 MCHC 33.3 g/dL (30-55) 04/27/25 14:04 RDW 13.5 % (12.1-15.1) 04/27/25 14:04 Plt Count 258 10^3/cmm (157-399) 04/27/25 14:04 MPV 11.2 fL (7.4-10.4) H 04/27/25 14:04 Neut % (Auto) 73.8 % 04/27/25 14:04 Lymph % (Auto) 14.0 % 04/27/25 14:04 [place] % (Auto) 7.6 % 04/27/25 14:04 Eos % (Auto) 3.7 % 04/27/25 14:04 Baso % (Auto) 0.5 % 04/27/25 14:04 Neut # (Auto) 8.17 10^3/uL (1.8-7.7) H 04/27/25 14:04 Lymph # (Auto) 1.6 10^3/uL (0.8-4.8) 04/27/25 14:04 [place] # (Auto) 0.8 10^3/uL (0.2-0.9) 04/27/25 14:04 Eos # (Auto) 0.4 10^3/uL (0.0-0.8) 04/27/25 14:04 Baso # (Auto) 0.1 10^3/uL (0.0-0.1) 04/27/25 14:04 Nucleated RBC % (auto) 0 % 04/27/25 14:04 Nucleated RBCs # 0.0 /100WBC 04/27/25 14:04 PT 12.80 SECONDS (12.1-14.9) 04/27/25 14:04 INR 0.90 (0.8-1.2) 04/27/25 14:04 APTT 28.6 SECONDS (23.9-36.7) 04/27/25 14:04 Sodium 135 mmol/L (136-145) L 04/27/25 14:04 Potassium 4.0 mmol/L (3.5-5.1) 04/27/25 14:04 Chloride 98 mmol/L (98-107) 04/27/25 14:04 Carbon Dioxide 29 mmol/L (22-29) 04/27/25 14:04 Anion Gap 12.0 (5-19) 04/27/25 14:04 BUN 16 mg/dL (8-23) 04/27/25 14:04 Creatinine 0.5 mg/dL (0.5-0.9) 04/27/25 14:04 GFR Calculation Not Reportable 04/27/25 14:04 Glucose 150 mg/dL (65-115) H 04/27/25 14:04 Calculated Osmolality 284 mOsm/kg (285-295) L 04/27/25 14:04 Calcium 9.6 mg/dL (8.5-10.5) 04/27/25 14:04 Iron 92 ug/dL (37-145) 04/27/25 14:04 TIBC 323 mcg/dl 04/27/25 14:04 % Saturation 28.4 % (20-50) 04/27/25 14:04 Unsat Iron Binding 231 ug/dL (112-347) 04/27/25 14:04 Total Bilirubin 0.3 mg/dL (0.15-1.2) 04/27/25 14:04 AST 29 U/L (0-32) 04/27/25 14:04 ALT 20 U/L (0-33) 04/27/25 14:04 Alkaline Phosphatase 118 U/L (35-105) H 04/27/25 14:04 Total Protein 7.6 g/dL (6.6-8.7) 04/27/25 14:04 Albumin 4.6 g/dL (3.5-5.2) 04/27/25 14:04 Globulin 3.0 g/dL (1.3-4.6) 04/27/25 14:04 Urine Color Yellow (Yellow) 04/27/25 14:20 Urine Appearance Clear (CLEAR) 04/27/25 14:20 Urine pH 7.5 (5-7) 04/27/25 14:20 Ur Specific [place] 1.007 (1.005-1.030) 04/27/25 14:20 Urine Protein Negative (Negative) 04/27/25 14:20 Urine Glucose (UA) Negative (Normal) 04/27/25 14:20 Urine Ketones Negative (Negative) 04/27/25 14:20 Urine Blood Negative (Negative) 04/27/25 14:20 Urine Nitrate Negative (Negative) 04/27/25 14:20 Urine Bilirubin Negative (Negative) 04/27/25 14:20 Urine Urobilinogen 0.2 mg/dL (Negative) 04/27/25 14:20 Ur Leukocyte Esterase Negative (Negative) 04/27/25 14:20 Urine RBC 0-2 /hpf (0-2) 04/27/25 14:20 Urine WBC 0-5 /hpf (0-5) 04/27/25 14:20 Ur Squamous Epith Cells 0-5 /hpf (0-5) 04/27/25 14:20 Amorphous Sediment Not Reportable 04/27/25 14:20 Urine Bacteria None seen /hpf (NONE) 04/27/25 14:20 Hyaline Casts 0.81 /lpf 04/27/25 14:20 All radiology interpretation(s) finalized by discharge Discharge Plan Discharge Patient Disposition: Admitted As Inpatient Admit Provider: Mitch Salomon Clinical Impression: Closed displaced intertrochanteric fracture of left femur, initial encounter, Other iron deficiency anemias HTN (hypertension) Qualifiers: Hypertension type: essential hypertension Qualified Code(s): I10 - Essential (primary) hypertension Condition: Stable Coding Level of Care Code ED D[employer]ist for [employer]
[2025-04-27 15:30] VITALS: BP 140/50; PULSE 63; O2SAT 97
[2025-04-27 15:42] LABS: UA Slide Review UA Slide Review Perf
[2025-04-27 16:00] VITALS: BP 142/62; PULSE 69; RESP 15; TEMP 36.6; O2SAT 96
[2025-04-27 16:01] VITALS: BMI 23.3
[2025-04-27 16:18] LABS: Iron 92 ug/dL (37-145); Total Iron Binding Capacity 323 mcg/dl; Unsaturated Iron Binding 231 ug/dL (112-347)
[2025-04-27] MEDS: HYDROcodone-acetaminophen 5-325 mg Tablet 1 TAB PO ×2 (16:28→21:49)
--- NOTE | 2025-04-27 17:40 | PM.CONSULT ---
Providers/Reason For Consult Consulting Physician/Specialty*: Gil Aleman MD/orthopedic surgery Reason for Consult*: Left intertrochanteric hip fracture Attending Physician: Nataly Thakur NP Primary Care Provider: Robert Rutledge MD History of Present Illness History of Present Illness Kylah Valerio is a 85 year old female who fell earlier today landing on her left hip. She is unable to bear weight after this. Was brought to the emergency room and x-rays are demonstrating intertrochanteric hip fracture of the left hip. Patient was admitted through the hospital service and orthopedic consultation was requested. Review of Systems General: Reports: 10 or more systems reviewed and unremarkable except in HPI and below Const: Denies: fever(s) or chills ENMT: Denies: enlarged tonsils Card: Denies: chest pain Resp: Denies: dyspnea GI: Denies: abdominal pain : Denies: dysuria, urinary frequency or urinary urgency Musc: Denies: neck pain or back pain Skin/Breast: Denies: rash All/Imm: Denies: acute wheezing Medications/Allergies Home Medications ?Medication ?Instructions ?Recorded ?Confirmed ?Last Taken ?Type aspirin 81 mg tablet,delayed 81 mg PO DAILY 11/03/19 04/27/25 04/26/25 20:00 History release lovastatin 20 mg tablet 10 mg PO DAILY 11/03/19 04/27/25 04/27/25 08:00 History ascorbic acid (vitamin C) 500 mg 500 mg PO DAILY 07/05/22 04/27/25 04/27/25 08:00 History capsule magnesium oxide 250 mg PO DAILY 07/05/22 04/27/25 04/27/25 08:00 History cetirizine 10 mg capsule (All Day 10 mg PO DAILY PRN allergies 02/25/24 04/27/25 Unknown History Allergy (cetirizine)) metoprolol tartrate 25 mg tablet 12.5 mg PO BID 02/25/24 04/27/25 04/27/25 08:00 History amlodipine 10 mg tablet 10 mg PO DAILY #90 tabs 02/17/25 04/27/25 04/27/25 08:00 Rx latanoprost 0.005 % eye drops 1 drp ophthalmic (eye) DAILY 02/17/25 04/27/25 04/26/25 History cholecalciferol (vitamin D3) 50 50 mcg PO DAILY 04/27/25 04/27/25 04/26/25 20:00 History mcg (2,000 unit) tablet (Vitamin D3) lmabexogijku-rldclfpx-ggkjdcm-folic 1 tab PO DAILY 04/27/25 04/27/25 04/27/25 08:00 History acid 400 mcg-vit K1 20 mcg tablet Allergies Allergy/AdvReac Type Severity Reaction Status Date / Time Sulfa (Sulfonamide Allergy Unknown Verified 04/27/25 13:28 Antibiotics) levofloxacin (From Levaquin) AdvReac Mild Thrush Verified 04/27/25 13:28 Current Medications Generic Name Dose Route Start Last Admin Trade Name Freq PRN Reason Stop Dose Admin Hydrocodone Bitart/Acetaminophen 1 tab 04/27/25 15:59 04/27/25 16:28 Hydrocodone-Acetaminophen 5-325 Mg Tablet PO 1 tab Q4H PRN Administration MODERATE TO SEVERE PAIN Docusate Sodium 100 mg 04/27/25 17:00 04/27/25 16:28 Docusate Sodium 100 Mg Capsule PO 100 mg BID ALVIN Administration Sodium Chloride 1,000 mls @ 75 mls/hr 04/27/25 15:59 04/27/25 16:28 Sodium Chloride 0.9% IV 04/28/25 05:18 75 mls/hr .[id number] ALVIN Administration Metoprolol Tartrate 12.5 mg 04/27/25 17:00 04/27/25 16:28 Metoprolol Tartrate 25 Mg Tablet PO 12.5 mg BID ALVIN Administration PFSH Acute PFSH: Medical History (Updated 04/27/25 @ 17:42 by Gil Aleman MD) Carotid artery stenosis Anxiety HTN (hypertension) Hyperlipidemia Family History Other Stroke Social History Smoking and tobacco/nicotine status: never used tobacco/nicotine Alcohol intake: never Substance/Drug Use: never Dietary Habits: Current diet type/program: regular Caffeine: Yes Vitals/I&O/Wt Last Vital Signs Temp 97.8 F 04/27/25 16:00 Pulse 69 04/27/25 16:00 Resp 15 04/27/25 16:00 BP 142/62 04/27/25 16:00 Pulse Ox 96 04/27/25 16:00 O2 Del Method Room Air 04/27/25 16:01 04/27/25 04/27/25 04/27/25 06:59 14:59 22:59 Intake Total 0 / 0 Balance 0 / 0 Weight last 48 hrs Weight 115 lb 9.6 oz Weight 115 lb Physical Exam Narrative: On examination patient is laying in her hospital bed eating her dinner. She is able to sit up with out much discomfort. However any manipulation of her left hip or palpating about it is tender to palpation. She is neurovasc intact distally. Patient is awake and alert and understanding of all situation Urinary Catheter Management: Estes: Cath Placed During This Visit: yes Urinary Catheter Date of Insertion: 04/27/25 Urinary Catheter Time of Insertion: 14:06 Data 04/27/25 14:04 04/27/25 14:04 A&P Assessment and plan 1. Closed displaced intertrochanteric fracture of left femur, initial encounter: Patient with a left intertrochanteric hip fracture after a fall at home. Patient is an ambulator and therefore at this time is been offered surgical repair of her fracture in order to allow her to return to early ambulatory status. Plan: Plan at this time is for open reduction internal fixation of left intertrochanteric hip fracture. Plan on using proximal trochanteric nail. PDMP PDMP Reviewed: Not Reviewed Coding Level of Care Code Acute Code for Chg Fwd Diagnoses Closed displaced intertrochanteric fracture of left femur, initial encounter S72.142A Encounter type: initial encounter Fracture type: closed Fracture alignment: displaced
[2025-04-27 20:00] VITALS: BP 97/60; PULSE 61; RESP 18; TEMP 36.8; O2SAT 95
[2025-04-27 21:48] VITALS: BP 122/62
[2025-04-28] VITALS (17 sets, daily range): BP systolic 106–150; BP diastolic 54–73; PULSE 63–93; RESP 16–18; TEMP 36.2–37; O2SAT 94–99; BMI 23.3
[2025-04-28] MEDS: HYDROcodone-acetaminophen 5-325 mg Tablet 1 TAB PO (04:11)
[2025-04-28] MEDS: ATORVASTATIN 20 MG TABLET PO (04:12)
[2025-04-28 06:01] LABS: Hematocrit 30.6 % (36-47); Hemoglobin 10.20 g/dL (11.27-16.99); Mean Corpuscular HGB Conc 33.3 g/dL (30-55); Mean Corpuscular Hemoglobin 31.4 pg (27-33); Mean Corpuscular Volume 94.2 fl (85-98); Nucleated Red Blood Cells % 0 %; Platelet Count 193 10^3/cmm (157-399); Red Blood Count 3.25 10^6/uL (3.85-5.65); White Blood Count 8.47 10^3/uL (3.29-11.43)
[2025-04-28 06:23] LABS: Alanine Aminotransferase 16 U/L (0-33); Albumin Level 3.8 g/dL (3.5-5.2); Alkaline Phosphatase 88 U/L (35-105); Anion Gap 12.4 (5-19); Aspartate Amino Transferase 29 U/L (0-32); Blood Urea Nitrogen 10 mg/dL (8-23); Calcium 8.3 mg/dL (8.5-10.5); Carbon Dioxide 25 mmol/L (22-29); Chloride 104 mmol/L (98-107); Globulin 2.1 g/dL (1.3-4.6); Glucose 125 mg/dL (65-115); Magnesium 2.0 mg/dL (1.7-2.3); Osmolality Calculated 287 mOsm/kg (285-295); Potassium 3.4 mmol/L (3.5-5.1); Sodium 138 mmol/L (136-145); Total Protein 5.9 g/dL (6.6-8.7)
--- NOTE | 2025-04-28 08:01 | P.PN_ITS ---
Subjective 2 Subjective: Patient is a very pleasant 85-year-old female seen and examined at bedside on hospital rounds today. Patient sitting up in bed with continued left hip pain, but states no shortness of breath or new or worsening symptoms. Review of patient's labs mild hemoglobin drop 10.20 we will continue to closely monitor. Patient is currently n.p.o. with plans for left hip surgical repair later this morning. Patient was concerned that she has never had general anesthesia, only had moderate anesthesia with a colonoscopy before with no issues, but that her children have had difficulty waking up out of anesthesia. Reassured patient that this could be related to anesthesia, all other questions and concerns addressed at the bedside this morning. Vitals/I&O/Wt Last Vital Signs Temp 97.8 F 04/28/25 07:46 Pulse 63 04/28/25 07:46 Resp 18 04/28/25 07:46 BP 119/67 04/28/25 07:46 Pulse Ox 94 04/28/25 07:46 O2 Del Method Room Air 04/28/25 07:46 O2 Flow Rate 2 04/28/25 06:08 04/27/25 04/28/25 04/28/25 22:59 06:59 14:59 Intake Total 240 / 240 1000 / 1240 Output Total 1150 / 1150 850 / 2000 Balance -910 / -910 150 / -760 Weight last 48 hrs Weight 52.435 kg Weight 52.435 kg Weight 52.163 kg Physical Exam 2 Narrative: Well-groomed 85-year-old female laying in bed with left hip pain with movement but otherwise in no apparent distress. Const: COMMON NORMALS: no acute distress, patient oriented x3, alert and well nourished HENMT: COMMON NORMALS: normocephalic, Normal external nose present, moist oral mucous membranes and dentition normal HEAD & SCALP: normocephalic NOSE: N ormal external nose present Eye: COMMON NORMALS: Equal, round and reactive pupils present PUPIL: Yes Equal, round and reactive pupils present Neck/C-Spine: COMMON NORMALS: full ROM, no lymphadenopathy and no JVD Resp: COMMON NORMALS: normal respiratory effort and clear to auscultation bilaterally AUSCULTATION: clear to auscultation bilaterally Cardio: COMMON NORMALS: no JVD, regular rate, regular rhythm, S1 normal heart sound present and S2 normal heart sound present RATE: regular rate RHYTHM: regular rhythm HEART SOUNDS: S1 normal heart sound present and S2 normal heart sound present GI: COMMON NORMALS: Normal to inspection, nondistended, normoactive bowel sounds present Extremity: NARRATIVE EXTREMITY EXAM: Left leg with outward rotation mildly shortened compared to right leg left hip tenderness to palpation Neuro: COMMON NORMALS: patient oriented x3 and CN's II-XII intact bilaterally SENSORIUM/ORIENTATION: Yes alert Psych: COMMON NORMALS: mental status grossly normal Skin: COMMON NORMALS: no rashes or lesions noted and turgor normal GENERAL SKIN EXAM: no rashes or lesions noted and turgor normal Urinary Catheter Management: Estes: Cath Placed During This Visit: yes Reason for Continuing Indwelling Catheter: Required Immobilization for Trauma or Surgery or Anesthesia Urinary Catheter Date of Insertion: 04/27/25 Urinary Catheter Time of Insertion: 14:06 Data 04/28/25 05:24 04/28/25 05:24 A&P Assessment and plan 1. Intertrochanteric fracture of left hip: 2. HTN (hypertension): 3. Glaucoma: 4. Hyperlipidemia: 5. Carotid artery stenosis: 6. Other iron deficiency anemias: Plan: Left hip intertrochanteric and trochanteric fracture - Non-weight bearing Left leg - Fall precautions - Greatly appreciate orthopedic surgical management with - Multi-modal pain control - Appreciate physical therapy and Occupational Therapy evaluation and recommendations postoperatively - Patient will most likely need [facility] level of care at discharge Essential hypertension - Admitting blood pressure 143/45 - Resume home medications metoprolol, amlodipine, lovastatin Glaucoma - Continue home dosing timolol Hx of Iron defeciency anemia - Iron 92, TIBC 323 WNL - Hemoglobin 11.80--<10.20 - Monitor and transfuse for hemoglobin less than 7.0 Hx of Hyperlipidemia Carotid stenosis - Does not take statin - Daily ASA 81mg, taken last night VTE PPx: SCDs, ASA GI PPx: PPI CODE STATUS: Full code PDMP PDMP Reviewed: Last Reviewed 04/27/25 16:06 by Nataly Thakur, COMM[employer]ITY [employer] PROGRAM COORDINATOR Attestations 2 Medical Necessity Statement*: Patient will be admitted inpatient with expectation of greater than 2 midnights secondary to hip fracture, orthopedic surgical intervention, PT/OT postoperatively, pain control and medical management. Coding Level of Care Code 94678 Diagnoses Intertrochanteric fracture of left hip S72.142A HTN (hypertension) I10 Glaucoma H40.9 Hyperlipidemia E78.5 Carotid artery stenosis I65.29 Other iron deficiency anemias D50.8
--- NOTE | 2025-04-28 10:46 | PC.CHAP ---
Pastoral Care Encounter/Spiritual Assessment Type of Contact [] Declined early childhood assistant visit [] Patient/Family/Request visit [] Outpatient visit [] Follow-up visit [] Physician referral [] Code/Alert [x] Routine visit [] Staff referral [] Actively dying [] Patient sleeping [] Family support [] [] Out of room [] Palliative care [] [] Receiving care in room [] Pre-surgical visit [] Trauma [] Long length of stay [] ICU visit [] Other: Relational/Emotional Strength [x] Patient feels connected with others/family/visitors/staff [] Distress [] Loneliness/isolation [] Abandonment Spirituality of Patient [x] Person of Tamia [] Attends Latter Day of their Tamia [x] Believes in Prayer [] Reads Bible or Restoration materials [] There are Spiritual issues to be addressed Neon Technician Interventions [x] Prayer [x] Active listening [] Non-anxious presence [x] Spiritual/emotional support [] Crisis/trauma care [] Spiritual counseling [] Bereavement support [] Provided bereavement packet [] Provided Bible/devotional materials [] Provided toy/stuffed animal, coloring book to patient or family member [] Provided Communion [] Anointing/[place] [] Salvation [x] Completed spiritual assessment [] Other: Impact on Illness or Injury [] Angry [] Fearful [] Anxious [] Often cries [] Exhaustion [] Unable to work [] Unable to attend caodaism [] Unable to walk/stand [] Unable to read [] Unable to drive [] Unable to eat/drink [] Unable to sleep [] Unable to be with family [] Patient intubated [] Other: Summary Time spent with patient 5 min
--- NOTE | 2025-04-28 11:23 | ANES.PREANE2 ---
Pre-Anesthetic Assessment Height/Weight: Height 4 ft 11 in Weight 115 lb 9.6 oz Temp Pulse Resp BP Pulse Ox O2 Del Method O2 Flow Rate 98.6 F 67 17 133/55 96 Room Air 2 04/28/25 11:12 04/28/25 11:12 04/28/25 11:12 04/28/25 11:12 04/28/25 11:12 04/28/25 11:12 04/28/25 06:08 Preop Diagnosis: Hip fracture Operation Date: 04/28/25 12:00 Proposed Procedures p Trochanteric Femoral Nail(Left) - Gil Aleman MD Was Beta Michelle taken within 24 hours: Yes Was Clonidine taken within 24 hours: N/A Last intake: Intake Last Liquid Date 04/27/25 Last Liquid Time 23:30 Last Solid Date 04/27/25 Last Solid Time 23:30 Social No alcohol and No tobacco Exam alert, oriented x 3, clear to auscultation bilaterally and regular rate & rhythm Airway Submandibular: within normal limits Cervical ROM: within normal limits Mallampati: Class III Dentition: full Anesthetic Plan ASA status: 3 Anesthesia: General Other: No prior issues with anesthesia NPO since yesterday evening History of hypertension on metoprolol and amlodipine Carotid artery stenosis, follows with cardiology. Left ICA approximately 70% stenosis. Right ICA no stenosis. Patient denies any symptoms. Patient and physicians have chose not to intervene on this Labs reviewed from today and acceptable for procedure Plan for general anesthesia Medications/Allergies Home Medications ?Medication ?Instructions ?Recorded ?Confirmed ?Last Taken ?Type aspirin 81 mg tablet,delayed 81 mg PO DAILY 11/03/19 04/27/25 04/26/25 20:00 History release lovastatin 20 mg tablet 10 mg PO DAILY 11/03/19 04/27/25 04/27/25 08:00 History ascorbic acid (vitamin C) 500 mg 500 mg PO DAILY 07/05/22 04/27/25 04/27/25 08:00 History capsule magnesium oxide 250 mg PO DAILY 07/05/22 04/27/25 04/27/25 08:00 History cetirizine 10 mg capsule (All Day 10 mg PO DAILY PRN allergies 02/25/24 04/27/25 Unknown History Allergy (cetirizine)) metoprolol tartrate 25 mg tablet 12.5 mg PO BID 02/25/24 04/27/25 04/27/25 08:00 History amlodipine 10 mg tablet 10 mg PO DAILY #90 tabs 02/17/25 04/27/25 04/27/25 08:00 Rx latanoprost 0.005 % eye drops 1 drp ophthalmic (eye) DAILY 02/17/25 04/27/25 04/26/25 History cholecalciferol (vitamin D3) 50 50 mcg PO DAILY 04/27/25 04/27/25 04/26/25 20:00 History mcg (2,000 unit) tablet (Vitamin D3) ccdxebrhotwu-mdzjhgmp-notnibm-folic 1 tab PO DAILY 04/27/25 04/27/25 04/27/25 08:00 History acid 400 mcg-vit K1 20 mcg tablet Allergies Allergy/AdvReac Type Severity Reaction Status Date / Time Sulfa (Sulfonamide Allergy Unknown Verified 04/27/25 13:28 Antibiotics) levofloxacin (From Levaquin) AdvReac Mild Thrush Verified 04/27/25 13:28 Current Medications Generic Name Dose Route Start Last Admin Trade Name Eltonq PRN Reason Stop Dose Admin Hydrocodone Bitart/Acetaminophen 1 tab 04/27/25 15:59 04/28/25 04:11 Hydrocodone-Acetaminophen 5-325 Mg Tablet PO 1 tab On Hold: 04/28/25 11:03 Q4H PRN Administration Comment: Order held by Process MODERATE TO SEVERE PAIN Transfer Amlodipine Besylate 10 mg 04/28/25 05:00 04/28/25 04:14 Amlodipine 10 Mg Tablet PO 10 mg On Hold: 04/28/25 11:03 DAILY ALVIN Administration Comment: Order held by Process Transfer Ascorbic Acid 500 mg 04/28/25 05:00 04/28/25 04:13 Ascorbic Acid 500 Mg Tablet PO 500 mg On Hold: 04/28/25 11:03 DAILY ALVIN Administration Comment: Order held by Process Transfer Atorvastatin Calcium 20 mg 04/28/25 05:00 04/28/25 04:12 Atorvastatin 20 Mg Tablet PO 20 mg On Hold: 04/28/25 11:03 DAILY ALVIN Administration Comment: Order held by Process Transfer Docusate Sodium 100 mg 04/27/25 17:00 04/28/25 04:12 Docusate Sodium 100 Mg Capsule PO 100 mg On Hold: 04/28/25 11:03 BID ALVIN Administration Comment: Order held by Process Transfer Sodium Chloride 1,000 mls @ 30 mls/hr 04/28/25 11:15 04/28/25 11:16 Sodium Chloride 0.9% IV 30 mls/hr .Q24H ALVIN Administration Latanoprost 1 drop 04/28/25 05:00 04/28/25 04:14 Latanoprost 0.005% Op Soln 2.5 Ml Btl EYE-BOTH 1 drop On Hold: 04/28/25 11:03 DAILY ALVIN Administration Comment: Order held by Process Transfer Metoprolol Tartrate 12.5 mg 04/27/25 17:00 04/28/25 04:12 Metoprolol Tartrate 25 Mg Tablet PO 12.5 mg On Hold: 04/28/25 11:03 BID ALVIN Administration Comment: Order held by Process Transfer Pantoprazole Sodium 40 mg 04/28/25 05:00 04/28/25 04:[address] 40 Mg Tablet PO 40 mg On Hold: 04/28/25 11:03 DAILY ALVIN Administration Comment: Order held by Process Transfer [facility] Anesthesia Medical History (Updated 04/28/25 @ 09:03 by Yuval Fuller DO) Carotid artery stenosis Anxiety HTN (hypertension) Hyperlipidemia Family History Other Stroke Social History Smoking and tobacco/nicotine status: never used tobacco/nicotine Alcohol intake: never Substance/Drug Use: never Data Anesthesia 04/28/25 05:24 04/28/25 05:24 Short CBC 04/27/25 04/28/25 Range/Units 14:04 05:24 WBC 11.06 8.47 (3.29-11.43) 10^3/uL Hgb 11.80 10.20 L (11.27-16.99) g/dL Hct 35.4 L 30.6 L (36-47) % MCV 94.4 94.2 (85-98) fl Plt Count 258 193 (157-399) 10^3/cmm Neut % (Auto) 73.8 65.4 % Neut # (Auto) 8.17 H 5.54 (1.8-7.7) 10^3/uL BMP 04/27/25 04/28/25 14:04 05:24 Sodium 135 L 138 Potassium 4.0 3.4 L Chloride 98 104 Carbon Dioxide 29 25 BUN 16 10 Creatinine 0.5 0.5 Glucose 150 H 125 H Calcium 9.6 8.3 L Liver Function 04/27/25 04/28/25 Range/Units 14:04 05:24 Total Bilirubin 0.3 0.4 (0.15-1.2) mg/dL AST 29 29 (0-32) U/L ALT 20 16 (0-33) U/L Alkaline Phosphatase 118 H 88 (35-105) U/L Albumin 4.6 3.8 (3.5-5.2) g/dL Urine 04/27/25 Range/Units 14:20 Urine Color Yellow (Yellow) Urine Appearance Clear (CLEAR) Urine pH 7.5 (5-7) Ur Specific Tate 1.007 (1.005-1.030) Urine Protein Negative (Negative) Urine Glucose (UA) Negative (Normal) Urine Ketones Negative (Negative) Urine Nitrate Negative (Negative) Urine Bilirubin Negative (Negative) Ur Leukocyte Esterase Negative (Negative) Urine RBC 0-2 (0-2) /hpf Urine WBC 0-5 (0-5) /hpf Coags 04/27/25 14:04 PT 12.80 INR 0.90 APTT 28.6
--- NOTE | 2025-04-28 12:07 | W.PM.OPSUD ---
Surgery/Procedure H&P Update DATE OF PROCEDURE: April 28, 2025 DATE H&P PERFORMED: 04/27/25 H&P UPDATE INFORMATION: I have reviewed H&P completed within last 30 days, I have examined patient prior to procedure and No changes to prior documentation PREOP DIAGNOSIS: Hip fracture PLANNED PROCEDURE: Operation Date: 04/28/25 12:00 Proposed Procedures p Trochanteric Femoral Nail(Left) - Gil Aleman MD
[2025-04-28] MEDS: ceFAZolin 2,000 mg SDV 2000 MG IVP ×2 (12:15→20:23)
[2025-04-28] MEDS: BUPivacaine-epi 0.5% 10 ML INJ 30 ML INJECTION (12:59)
--- NOTE | 2025-04-28 13:25 | PM.OP ---
Operative Report Date of procedure: April 28, 2025 Surgeon: Gil Aleman MD Procedure: Preoperative diagnosis: Left intertrochanteric hip fracture Postoperative diagnosis: Same Procedure: Open reduction with internal fixation using proximal trochanteric nail left hip fracture Surgeon: Gil Aleman MD Anesthesia: General EBL: 50 cc Indications: Kylah is a 85-year-old white female who fell at home the other day injuring her left hip. She is unable to bear weight and was seen in the emergency room after being brought in. X-rays there demonstrated intertrochanteric hip fracture left hip. Subsequently patient was admitted to the hospitalist service and orthopedic consultation was obtained. After initial evaluation of the patient he was found that the patient had a fractured hip and would benefit from internal fixation. She has an ambulator and lives on her own and therefore should be given the opportunity to try and return to this scenario. All risk benefits treatment alternatives were discussed with her and she was agreeable to this at this time. Procedure: After obtaining written consent patient was taken to the operating room and while still in her hospital bed had general anesthetic administered. Once good anesthesia was achieved patient was placed on the fracture table with both feet placed in traction boots. Right leg was dropped below the level table and. Left leg was placed straight out with appropriate traction and manipulation. Interoperative fluoroscopy demonstrated adequate reduction of the fracture. At this point left hip an leg were prepped and draped usual fashion. After surgical timeout standard incision made over the lateral superior aspect of the greater trochanter. Sharp dissecting down through the IT band. By digital palpation proximal trochanter was identified. Starting awl was positioned on there under fluoroscopic guidance and by palpation. This is driven into the proximal greater trochanter and then a guide daniel was placed down through this into the medullary canal all the way down to the distal femur. All was removed and proximal reaming of the femur was done over the guidewire. Subsequently a size 10 mm short proximal trochanteric nail was selected with the 125 degree angle of the neck. This is driven down over the guidewire until down to appropriate depth. This point guidewire was removed. Drill guide for the lag screw was positioned through the external drill guide. Stab wound was made in the lateral thigh and drill guide was placed up to the lateral cortex of the inferior portion of the greater trochanter. Guidepin was drilled on and positioned in the inferior aspect the femoral neck. Lateral views demonstrated central positioning of the pin in the femoral neck. This is measured to a depth of 100 mm and therefore the reaming over the guidepin was done to 100 mm depth. 100 mm lag screw was then driven on up for the guidepin into the femoral neck and had with good fixation identified. Good depth and positioning was identified on both AP and lateral fluoroscopy views. Locking screw was then placed through the proximal nail holding the lag screw in place to the daniel. At this time distal locking screw drill guide was positioned through a stab wound up to the lateral cortex of the femur. This is drilled through demonstrated on fluoroscopy to be through the locking hole. This is a static screw position. This is measured to be a 30 [address] screw screws [address] place through the drill guide into the femur and across the proximal trochanteric nail to the opposite cortex. Interoperative fluoroscopy again demonstrated good fixation. All guides were removed and interoperative fluoroscopy demonstrated adequate reduction of fracture and position of all hardware. Wounds were then closed with 0 Vicryl interrupted sutures of subcutaneous tissue. Skin was closed with skin angel. Wounds are cleaned and dry dressed with Xeroform gauze sterile gauze dressing and Silverlon dressings over this. Patient was then awakened and transferred to cover room in stable condition
--- NOTE | 2025-04-28 13:43 | ANE.PACU2 ---
Inpatient post-anesthesia follow up: Airway intact: Yes Vital signs: Temperature 97.5 F Pulse Rate 66 Respiratory Rate 16 Blood Pressure 106/62 Pulse Oximetry 97 Oxygen Delivery Me thod Room Air Oxygen Flow Rate 5 Fraction of Inspir ed Oxygen Hydration adequate: Yes Nausea and vomiting: No Mental status: Baseline
--- NOTE | 2025-04-28 14:13 | XR_ITS ---
WS: [id number] XR hip LT 2-3V wo/w pel* [id number] REASON FOR EXAM: or pic FINDINGS: Short intramedullary daniel and large femoral neck nail fixation of recent intertrochanteric fracture. Surgical appliances are intact and in proper position and alignment. Fracture fragments are in good apposition and alignment. XR/XR hip LT 2-3V wo/w pel* [id number] IMPRESSION: Hip fracture with internal fixation without abnormality.
[2025-04-28] MEDS: mupirocin oint 22 gm 1 APPLIC NASAL (17:33)
[2025-04-28] MEDS: chlorhexidine gluconate 0.12% Btl 473 mL 30 ML MUCOUS MEM ×2 (17:33→20:24)
[2025-04-28] MEDS: sennosides-docusate Tablet 2 TAB PO (17:33)
[2025-04-29 02:00] VITALS: BMI 23.3
[2025-04-29 04:53] VITALS: BP 104/62
[2025-04-29] MEDS: chlorhexidine gluconate 0.12% Btl 473 mL 30 ML MUCOUS MEM ×4 (05:07→20:52)
[2025-04-29] MEDS: mupirocin oint 22 gm 1 APPLIC NASAL ×2 (05:07→16:45)
[2025-04-29] MEDS: ATORVASTATIN 20 MG TABLET PO (05:08)
[2025-04-29] MEDS: ceFAZolin 2,000 mg SDV 2000 MG IVP ×2 (05:09→11:58)
[2025-04-29] MEDS: multivitamin therapeutic Tablet 1 TAB PO (05:09)
[2025-04-29] MEDS: sennosides-docusate Tablet 2 TAB PO ×2 (05:09→16:44)
[2025-04-29 06:04] LABS: Hematocrit 23.1 % (36-47); Hemoglobin 7.60 g/dL (11.27-16.99); Mean Corpuscular HGB Conc 32.9 g/dL (30-55); Mean Corpuscular Hemoglobin 31.4 pg (27-33); Mean Corpuscular Volume 95.5 fl (85-98); Nucleated Red Blood Cells % 0 %; Platelet Count 155 10^3/cmm (157-399); Red Blood Count 2.42 10^6/uL (3.85-5.65); White Blood Count 9.44 10^3/uL (3.29-11.43)
[2025-04-29 06:24] LABS: Alanine Aminotransferase 12 U/L (0-33); Albumin Level 3.1 g/dL (3.5-5.2); Alkaline Phosphatase 67 U/L (35-105); Anion Gap 12.6 (5-19); Aspartate Amino Transferase 24 U/L (0-32); Blood Urea Nitrogen 15 mg/dL (8-23); Calcium 7.9 mg/dL (8.5-10.5); Carbon Dioxide 22 mmol/L (22-29); Chloride 103 mmol/L (98-107); Globulin 2.0 g/dL (1.3-4.6); Glucose 117 mg/dL (65-115); Magnesium 1.8 mg/dL (1.7-2.3); Osmolality Calculated 280 mOsm/kg (285-295); Potassium 3.6 mmol/L (3.5-5.1); Sodium 134 mmol/L (136-145); Total Protein 5.1 g/dL (6.6-8.7)
[2025-04-29 07:37] VITALS: BP 113/69; PULSE 67; RESP 18; TEMP 36.6; O2SAT 95
--- NOTE | 2025-04-29 07:52 | P.PN_ITS ---
Subjective 2 Subjective: Patient is a very pleasant 85-year-old female seen and examined at bedside on hospital rounds today. Patient sitting up in bedside chair stating some mild left hip pain but otherwise no new concerns or complaints. Spoke with patient about her labs, hemoglobin dropped to 7.60, we will continue to closely monitor this. Vital signs are stable, room air saturation greater than 97%. Patient states that she has not had a bowel movement since surgery but she is had flatus. Will work on good bowel regimen and encourage her continued use of incentive spirometer. Patient is accepted to SNF, will will work towards discharge in the next 24 to 48 hours depending on her stability of her hemoglobin. Greatly appreciate continued orthopedic surgical consultation and management with and will defer to ortho for discharge recommendations. Greatly appreciate case management and coordination of discharge planning. Vitals/I&O/Wt Last Vital Signs Temp 98 F 04/29/25 07:37 Pulse 67 04/29/25 07:37 Resp 18 04/29/25 07:37 BP 113/69 04/29/25 07:37 Pulse Ox 95 04/29/25 07:37 O2 Del Method Room Air 04/29/25 07:37 O2 Flow Rate 5 04/28/25 13:30 04/28/25 04/29/25 04/29/25 22:59 06:59 14:59 Intake Total 998.333 / 303.043 1225 / 1998.333 Output Total 450 / 1250 300 / 1550 Balance 548.333 / -251.667 700 / 448.333 Weight last 48 hrs Weight 52.481 kg Weight 52.435 kg Weight 52.435 kg Weight 52.163 kg Physical Exam 2 Narrative: Pleasant, well-groomed 85-year-old female sitting up in bedside chair with mild left hip pain otherwise in no apparent distress. Const: COMMON NORMALS: no acute distress, patient oriented x3, alert and well nourished HENMT: COMMON NORMALS: normocephalic, Normal external nose present, moist oral mucous membranes and dentition normal HEAD & SCALP: normocephalic NOSE: N ormal external nose present Eye: COMMON NORMALS: Equal, round and reactive pupils present PUPIL: Yes Equal, round and reactive pupils present Neck/C-Spine: COMMON NORMALS: full ROM, no lymphadenopathy and no JVD Resp: COMMON NORMALS: normal respiratory effort and clear to auscultation bilaterally AUSCULTATION: clear to auscultation bilaterally Cardio: COMMON NORMALS: no JVD, regular rate, regular rhythm, S1 normal heart sound present and S2 normal heart sound present RATE: regular rate RHYTHM: regular rhythm HEART SOUNDS: S1 normal heart sound present and S2 normal heart sound present GI: COMMON NORMALS: Normal to inspection, nondistended, normoactive bowel sounds present Extremity: NARRATIVE EXTREMITY EXAM: Mild left hip tenderness, surgical dressing in place with scant sanguinous drainage noted. Neuro: COMMON NORMALS: patient oriented x3 and CN's II-XII intact bilaterally SENSORIUM/ORIENTATION: Yes alert Psych: COMMON NORMALS: mental status grossly normal Skin: COMMON NORMALS: no rashes or lesions noted and turgor normal GENERAL SKIN EXAM: no rashes or lesions noted and turgor normal Urinary Catheter Management: Estes: Cath Placed During This Visit: yes, but has since been removed by the nurse Reason for Continuing Indwelling Catheter: Perioperative Use in Selected Surgeries Urinary Catheter Date of Insertion: 04/27/25 Urinary Catheter Time of Insertion: 14:06 Date Urinary Catheter Removed: 04/29/25 Time Urinary Catheter Discontinued: 05:18 Data 04/29/25 05:23 04/29/25 05:23 A&P Assessment and plan 1. Intertrochanteric fracture of left hip: 2. HTN (hypertension): 3. Glaucoma: 4. Hyperlipidemia: 5. Carotid artery stenosis: 6. Other iron deficiency anemias: Plan: Left hip intertrochanteric and trochanteric fracture - Partial weight bearing Left leg - Fall precautions - Greatly appreciate orthopedic surgical management with - Multi-modal pain control - Appreciate physical therapy and Occupational Therapy evaluation and recommendations postoperatively - Pending SNF at discharge, appreciate case management in coordination for discharge planning - Bowel Regimen to prevent constipation, adding Senna Lax nightly - Encourage use of incentive spirometry Essential hypertension - Admitting blood pressure 143/45 - Resume home medications metoprolol, amlodipine, lovastatin Glaucoma - Continue home dosing timolol Hx of Iron defeciency anemia - Iron 92, TIBC 323 WNL - Hemoglobin 11.80--<10.20--<7.60 - Patient is currently asymptomatic - Monitor and transfuse for hemoglobin less than 7.0 Hx of Hyperlipidemia Carotid stenosis - Does not take statin - Daily ASA 325mg currently VTE PPx: SCDs, ASA GI PPx: PPI CODE STATUS: Full code PDMP PDMP Reviewed: Last Reviewed 04/27/25 16:06 by Nataly Thakur REINFORCER Attestations 2 Medical Necessity Statement*: Patient continue inpatient interventions greater than 2 midnights secondary to hip fracture s/p repair, orthopedic surgical intervention, PT/OT, pain control and medical management. Coding Level of Care Code 63920 Diagnoses Intertrochanteric fracture of left hip S72.142A HTN (hypertension) I10 Glaucoma H40.9 Hyperlipidemia E78.5 Carotid artery stenosis I65.29 Other iron deficiency anemias D50.8
[2025-04-29 11:23] VITALS: BP 106/62; PULSE 66; RESP 16; TEMP 36.4; O2SAT 97
[2025-04-29 15:55] VITALS: BP 123/53; PULSE 66; RESP 18; TEMP 36.4; O2SAT 99
--- NOTE | 2025-04-29 16:41 | P.PN_ITS ---
Subjective 2 Subjective: Patient is now postop day 1 after open reduction internal fixation of the left intertrochanteric hip fracture. All is progressing well. Patient did have a drop in her hemoglobin but no concerns with her vital signs being normal. This will continue to be monitored Vitals/I&O/Wt Last Vital Signs Temp 97.6 F 04/29/25 15:55 Pulse 66 04/29/25 15:55 Resp 18 04/29/25 15:55 BP 123/53 04/29/25 15:55 Pulse Ox 99 04/29/25 15:55 O2 Del Method Room Air 04/29/25 15:55 O2 Flow Rate 5 04/28/25 13:30 04/29/25 04/29/25 04/29/25 06:59 14:59 22:59 Intake Total 1000 / 1998.333 840 / 840 Output Total 300 / 1550 200 / 200 Balance 700 / 448.333 640 / 640 Weight last 48 hrs Weight 115 lb 11.2 oz Weight 115 lb 9.6 oz Physical Exam 2 Narrative: Patient is awake and up to a chair. Dressings are clear. She states that she had her dressings changed earlier today. She has been up and ambulatory and doing well with partial weightbearing on the left. No other gross abnormalities or problems at this time. Urinary Catheter Management: Estes: Cath Placed During This Visit: yes, but has since been removed by the nurse Reason for Continuing Indwelling Catheter: Perioperative Use in Selected Surgeries Urinary Catheter Date of Insertion: 04/27/25 Urinary Catheter Time of Insertion: 14:06 Date Urinary Catheter Removed: 04/29/25 Time Urinary Catheter Discontinued: 05:18 Data 04/29/25 05:23 04/29/25 05:23 A&P Assessment and plan 1. Closed displaced intertrochanteric fracture of left femur, initial encounter: Patient's status post open reduction internal fixation left hip fracture now postop day 1. Progressing very well. Continues to improve with physical therapy. Pain control is been adequate. Plan: This time is continuing with pain control as well as further physical therapy and monitoring of her hemoglobin. PDMP PDMP Reviewed: Not Reviewed Attestations 2 Medical Necessity Statement*: Patient in need of pain control and further physical therapy. Must monitor hemoglobin as it did drop significantly since surgery. Coding Level of Care Code Acute Code for Chg Fwd Diagnoses Closed displaced intertrochanteric fracture of left femur, initial encounter S72.145H
[2025-04-29 20:15] VITALS: BP 123/51; PULSE 74; RESP 18; TEMP 36.8; O2SAT 97
[2025-04-30] VITALS: BP 117/69; PULSE 81; RESP 18; TEMP 36.6; O2SAT 97
[2025-04-30] MEDS: sennosides-docusate Tablet 2 TAB PO (05:04)
[2025-04-30] MEDS: HYDROcodone-acetaminophen 5-325 mg Tablet 1 TAB PO ×4 (05:04→22:41)
[2025-04-30] MEDS: multivitamin therapeutic Tablet 1 TAB PO (05:04)
[2025-04-30] MEDS: chlorhexidine gluconate 0.12% Btl 473 mL 30 ML MUCOUS MEM ×4 (05:05→22:43)
[2025-04-30] MEDS: mupirocin oint 22 gm 1 APPLIC NASAL ×2 (05:05→16:14)
[2025-04-30] MEDS: ATORVASTATIN 20 MG TABLET PO (05:06)
[2025-04-30 05:09] VITALS: BP 113/52; PULSE 78; RESP 18; TEMP 36.6; O2SAT 97
[2025-04-30 07:06] LABS: Hematocrit 23.5 % (36-47); Hemoglobin 7.50 g/dL (11.27-16.99); Mean Corpuscular HGB Conc 31.9 g/dL (30-55); Mean Corpuscular Hemoglobin 31.5 pg (27-33); Mean Corpuscular Volume 98.7 fl (85-98); Nucleated Red Blood Cells % 0 %; Platelet Count 157 10^3/cmm (157-399); Red Blood Count 2.38 10^6/uL (3.85-5.65); White Blood Count 9.49 10^3/uL (3.29-11.43)
[2025-04-30 07:23] LABS: Alanine Aminotransferase 9 U/L (0-33); Albumin Level 3.3 g/dL (3.5-5.2); Alkaline Phosphatase 78 U/L (35-105); Anion Gap 14.0 (5-19); Aspartate Amino Transferase 25 U/L (0-32); Blood Urea Nitrogen 14 mg/dL (8-23); Calcium 8.5 mg/dL (8.5-10.5); Carbon Dioxide 22 mmol/L (22-29); Chloride 106 mmol/L (98-107); Globulin 2.5 g/dL (1.3-4.6); Glucose 135 mg/dL (65-115); Magnesium 2.0 mg/dL (1.7-2.3); Osmolality Calculated 289 mOsm/kg (285-295); Potassium 4.0 mmol/L (3.5-5.1); Sodium 138 mmol/L (136-145); Total Protein 5.8 g/dL (6.6-8.7)
[2025-04-30 07:25] VITALS: BP 93/54; PULSE 70; RESP 17; TEMP 36.6; O2SAT 100
--- NOTE | 2025-04-30 11:15 | PM.PN ---
Subjective Subjective: Patient is a very pleasant 85-year-old female seen and examined at bedside on hospital rounds today. Patient hemoglobin is stable remains low at 7.50. Patient did have hypotension and some dizziness this morning, will continue to monitor hemoglobin closely for the next 24 hours. Patient has left hip pain and is no longer dizzy, denies other symptoms currently. Patient states that she would feel much better if she could stay in the hospital at least 1 more day as she is worried that she is [facility] and need a blood transfusion, reassured patient that we would continue closely monitoring her hemoglobin and hematocrit for the next 24 hours and discharge her if she is medically stable. Will coordinate discharge planning with case management and orthopedic surgeon. Vitals/I&O/Wt Last Vital Signs Temp 97.9 F 04/30/25 07:25 Pulse 70 04/30/25 07:25 Resp 17 04/30/25 07:25 BP 93/54 04/30/25 07:25 Pulse Ox 100 04/30/25 07:25 O2 Del Method Room Air 04/30/25 07:25 O2 Flow Rate 5 04/28/25 13:30 04/29/25 04/30/25 04/30/25 22:59 06:59 14:59 Intake Total 1480 / 2320 120 / 120 Balance 1480 / 2120 120 / 120 Weight last 48 hrs Weight 56.302 kg Weight 52.481 kg Physical Exam Narrative: Pleasant, well-groomed 85-year-old female sitting up in bedside chair with mild left hip pain otherwise in no apparent distress. Const: COMMON NORMALS: no acute distress, patient oriented x3, alert and well nourished HENMT: COMMON NORMALS: normocephalic, Normal external nose present, moist oral mucous membranes and dentition normal HEAD & SCALP: normocephalic NOSE: Normal external nose present Eye: COMMON NORMALS: Equal, round and reactive pupils present PUPIL: Yes Equal, round and reactive pupils present Neck/C-Spine: COMMON NORMALS: full ROM, no lymphadenopathy and no JVD Resp: COMMON NORMALS: normal respiratory effort and clear to auscultation bilaterally AUSCULTATION: clear to auscultation bilaterally Cardio: COMMON NORMALS: no JVD, regular rate, regular rhythm, S1 normal heart sound present and S2 normal heart sound present RATE: regular rate RHYTHM: regular rhythm HEART SOUNDS: S1 normal heart sound present and S2 normal heart sound present GI: COMMON NORMALS: Normal to inspection, nondistended, normoactive bowel sounds present Extremity: NARRATIVE EXTREMITY EXAM: Mild left hip tenderness, surgical dressing in place with scant sanguinous drainage noted. Bruising to left hip. Neuro: COMMON NORMALS: patient oriented x3 and CN's II-XII intact bilaterally SENSORIUM/ORIENTATION: Yes alert Psych: COMMON NORMALS: mental status grossly normal Skin: COMMON NORMALS: no rashes or lesions noted and turgor normal GENERAL SKIN EXAM: no rashes or lesions noted and turgor normal Urinary Catheter Management: Estes: Cath Placed During This Visit: yes, but has since been removed by the nurse Reason for Continuing Indwelling Catheter: Perioperative Use in Selected Surgeries Urinary Catheter Date of Insertion: 04/27/25 Urinary Catheter Time of Insertion: 14:06 Date Urinary Catheter Removed: 04/29/25 Time Urinary Catheter Discontinued: 05:18 Data 04/30/25 06:44 04/30/25 06:44 A&P Assessment and plan 1. Intertrochanteric fracture of left hip: 2. HTN (hypertension): 3. Glaucoma: 4. Hyperlipidemia: 5. Carotid artery stenosis: 6. Other iron deficiency anemias: Plan: Left hip intertrochanteric and trochanteric fracture - Partial weight bearing Left leg - Fall precautions - Greatly appreciate orthopedic surgical management with - Multi-modal pain control - Appreciate physical therapy and Occupational Therapy evaluation and recommendations postoperatively - Pending SNF at discharge, appreciate case management in coordination for discharge planning - Bowel Regimen to prevent constipation, adding Senna Lax nightly - Encourage use of incentive spirometry Essential hypertension Currently hypotensice - Admitting blood pressure 143/45, currently 93/54 - Holding home medications metoprolol, amlodipine Glaucoma - Continue home dosing timolol Hx of Iron defeciency anemia - Iron 92, TIBC 323 WNL - Hemoglobin 11.80--<10.20--<7.60--<7.50 - Patient is currently asymptomatic but did have low blood pressure earlier today - Monitor and transfuse for hemoglobin less than 7.0 Hx of Hyperlipidemia Carotid stenosis - Lipitor 20mg Daily - Daily ASA 325mg currently VTE PPx: SCDs, ASA GI PPx: PPI CODE STATUS: Full code PDMP PDMP Reviewed: Last Reviewed 04/27/25 16:06 by Nataly Thakur [employer] Attestations Medical Necessity Statement*: Patient continue inpatient interventions greater than 2 midnights secondary to hip fracture s/p repair, orthopedic surgical intervention, PT/OT, pain control and medical management. Coding Level of Care Code 79391 Diagnoses Intertrochanteric fracture of left hip S72.142A HTN (hypertension) I10 Glaucoma H40.9 Hyperlipidemia E78.5 Carotid artery stenosis I65.29 Other iron deficiency anemias D50.8
[2025-04-30 11:28] VITALS: BP 113/64; PULSE 68; RESP 16; TEMP 36.3; O2SAT 99
--- NOTE | 2025-04-30 12:30 | PM.PN ---
Subjective Subjective: Patient is postop day #2 after open reduction internal fixation of of intertrochanteric hip fracture left hip. She is progressing well physical therapy but has some complaints of having some loose stool/diarrhea now after taking stool softener postoperatively. Otherwise no other complaints. Vitals/I&O/Wt Last Vital Signs Temp 97.4 F L 04/30/25 11:28 Pulse 68 04/30/25 11:28 Resp 16 04/30/25 11:28 BP 113/64 04/30/25 11:28 Pulse Ox 99 04/30/25 11:28 O2 Del Method Room Air 04/30/25 07:25 O2 Flow Rate 5 04/28/25 13:30 04/29/25 04/30/25 04/30/25 22:59 06:59 14:59 Intake Total 1480 / 2320 120 / 120 Balance 1480 / 2120 120 / 120 Weight last 48 hrs Weight 124 lb 2 oz Weight 115 lb 11.2 oz Physical Exam Narrative: Left hip dressings are clear and dry. She is neurovasc intact distally left lower extremity Urinary Catheter Management: Estes: Cath Placed During This Visit: yes, but has since been removed by the nurse Reason for Continuing Indwelling Catheter: Perioperative Use in Selected Surgeries Urinary Catheter Date of Insertion: 04/27/25 Urinary Catheter Time of Insertion: 14:06 Date Urinary Catheter Removed: 04/29/25 Time Urinary Catheter Discontinued: 05:18 Data 04/30/25 06:44 04/30/25 06:44 A&P Assessment and plan 1. Closed displaced intertrochanteric fracture of left femur, initial encounter: Patient is status post open reduction internal fixation left intertrochanteric hip fracture. All is going well. Plan at this time is for short and a nursing facility. Arrangements have been made for discharge today. Plan: Plan at this time is discharged [facility]. She will continue on physical therapy there. She will follow-up with me in the next 2 weeks for repeat evaluation and wound check and angel out. PDMP PDMP Reviewed: Last Reviewed 04/30/25 13:18 EST by Gil Aleman MD Attestations Medical Necessity Statement*: Patient is medically stable from an orthopedic standpoint for discharge Coding Level of Care Code Acute Code for Chg Fwd Diagnoses Closed displaced intertrochanteric fracture of left femur, initial encounter S72.142A
--- NOTE | 2025-04-30 15:39 | PC.SOCIAL ---
*IMM* CM delivered IMM from [employer] to patient. Patient received a copy. Copy placed in chart, initialed and dated 04/29/25.
[2025-04-30 16:01] VITALS: BP 130/69; PULSE 75; RESP 16; TEMP 36.4; O2SAT 97
[2025-04-30 20:17] VITALS: BP 104/60; PULSE 66; RESP 17; TEMP 36.8; O2SAT 96
[2025-05-01] VITALS (11 sets, daily range): BP systolic 122–154; BP diastolic 53–77; PULSE 70–99; RESP 16–17; TEMP 36.7–37.4; O2SAT 95–98
[2025-05-01] MEDS: multivitamin therapeutic Tablet 1 TAB PO (04:42)
[2025-05-01] MEDS: ATORVASTATIN 20 MG TABLET PO (04:42)
[2025-05-01] MEDS: mupirocin oint 22 gm 1 APPLIC NASAL ×2 (04:44→17:18)
[2025-05-01 04:45] LABS: Hemoglobin 7.00 g/dL (11.27-16.99); Mean Corpuscular HGB Conc 33.5 g/dL (30-55); Mean Corpuscular Hemoglobin 32.1 pg (27-33); Mean Corpuscular Volume 95.9 fl (85-98); Nucleated Red Blood Cells % 0 %; Platelet Count 191 10^3/cmm (157-399); Red Blood Count 2.18 10^6/uL (3.85-5.65); White Blood Count 8.62 10^3/uL (3.29-11.43)
[2025-05-01] MEDS: chlorhexidine gluconate 0.12% Btl 473 mL 30 ML MUCOUS MEM ×3 (04:45→17:17)
[2025-05-01 05:07] LABS: Hematocrit 20.9 % (36-47)
[2025-05-01 05:09] LABS: Alanine Aminotransferase 10 U/L (0-33); Albumin Level 3.3 g/dL (3.5-5.2); Alkaline Phosphatase 76 U/L (35-105); Anion Gap 12.1 (5-19); Aspartate Amino Transferase 23 U/L (0-32); Blood Urea Nitrogen 14 mg/dL (8-23); Calcium 8.5 mg/dL (8.5-10.5); Carbon Dioxide 26 mmol/L (22-29); Chloride 104 mmol/L (98-107); Globulin 2.1 g/dL (1.3-4.6); Glucose 118 mg/dL (65-115); Osmolality Calculated 288 mOsm/kg (285-295); Potassium 4.1 mmol/L (3.5-5.1); Sodium 138 mmol/L (136-145); Total Protein 5.4 g/dL (6.6-8.7)
[2025-05-01] MEDS: HYDROcodone-acetaminophen 5-325 mg Tablet 1 TAB PO ×2 (07:43→15:02)
--- NOTE | 2025-05-01 09:24 | PM.DCS ---
Discharge Providers Date of Admission: 04/27/25 15:24 Date of Discharge: May 01, 2025 Attending Provider at Admission: Mitch Salomon MD Attending Provider at Discharge: Nataly Thakur NP Primary Care Provider: Robert Rutledge MD Diagnoses at Discharge Discharge Diagnosis 1. Closed displaced intertrochanteric fracture of left femur, initial encounter: Reason for Visit Reason for Visit: fall - left hip pain Brief History: Admission: Kylah Valerio is a 85 year old female with a past medical history of hypertension, hyperlipidemia, carotid artery stenosis, glaucoma who fell earlier today sustaining a mildly displaced left intertrochanteric and trochanteric fracture. Patient was seen and treated in the ER by provider Dr. Maldonado who contacted orthopedic surgeon who graciously agrees for consultation. Patient is not on any anticoagulation, does take a baby aspirin at night. Patient denies sustaining injuries in the other place, did not hit her head and did not lose consciousness. Patient continues to endorse left hip pain and inability to move her leg without any pain. Patient denies current chest pain, shortness of breath, nausea, vomiting, diarrhea, abdominal pain, dark or tarry stools, any type of bleeding, recent illness, difficulty urinating, or syncope. Patient states that she ate at 1130 today, unsure whether they will take her to surgery this afternoon or tomorrow morning. Patient is agreeable to surgical interventions, admission with continued medical management. Hospital Course Hospital Course Left hip intertrochanteric and trochanteric fracture - Partial weight bearing Left leg - Fall precautions - Greatly appreciate orthopedic surgical management with - Multi-modal pain control - Appreciate physical therapy and Occupational Therapy evaluation and recommendations postoperatively - Pending SNF at discharge, appreciate case management in coordination for discharge planning - Bowel Regimen to prevent constipation, adding Senna Lax nightly - Encourage use of incentive spirometry Essential hypertension Currently hypotensice - Admitting blood pressure 143/45, currently 93/54 - Holding home medications metoprolol, amlodipine Glaucoma - Continue home dosing timolol Hx of Iron defeciency anemia - Iron 92, TIBC 323 WNL - Hemoglobin 11.80--<10.20--<7.60--<7.50--<7.00--< - tranfusion 1u pRBC's, will need weekly monitoring of Hgb/Hct while in SNF Discharging Hgb 8.90 - Patient is currently asymptomatic but did have low blood pressure earlier today - Monitor and transfuse for hemoglobin less than 7.0 Hx of Hyperlipidemia Carotid stenosis - Lipitor 20mg Daily - Daily ASA 325mg currently Discharge: Discharged to SNF in stable condition. Orthopedic discharge instructions per . Patient to continue PT/OT and SNF with partial weightbearing on left leg. Advised repeat hemoglobin hematocrit weekly. Continue to ASA for DVT PPx. Pain medications per Ortho. Patient is advised to follow-up with primary care provider in 1 to 3 days of discharge. Patient to continue sorbic acid and iron supplementation x 1 month, reevaluate outpatient with PCP for continued supplementation. All questions and concerns addressed with patient at the bedside prior to discharge. Physical Exam Narrative: Pleasant, well-groomed 85-year-old female sitting up in bedside chair with mild left hip pain otherwise in no apparent distress. Const: COMMON NORMALS: no acute distress, patient oriented x3, alert and well nourished HENMT: COMMON NORMALS: normocephalic, Normal external nose present, moist oral mucous membranes and dentition normal HEAD & SCALP: normocephalic NOSE: Normal external nose present Eye: COMMON NORMALS: Equal, round and reactive pupils present PUPIL: Yes Equal, round and reactive pupils present Neck/C-Spine: COMMON NORMALS: full ROM, no lymphadenopathy and no JVD Resp: COMMON NORMALS: normal respiratory effort and clear to auscultation bilaterally AUSCULTATION: clear to auscultation bilaterally Cardio: COMMON NORMALS: no JVD, regular rate, regular rhythm, S1 normal heart sound present and S2 normal heart sound present RATE: regular rate RHYTHM: regular rhythm HEART SOUNDS: S1 normal heart sound present and S2 normal heart sound present GI: COMMON NORMALS: Normal to inspection, nondistended, normoactive bowel sounds present Extremity: NARRATIVE EXTREMITY EXAM: Mild left hip tenderness, surgical dressing in place with scant sanguinous drainage noted. Bruising to left hip. Neuro: COMMON NORMALS: patient oriented x3 and CN's II-XII intact bilaterally SENSORIUM/ORIENTATION: Yes alert Psych: COMMON NORMALS: mental status grossly normal Skin: COMMON NORMALS: no rashes or lesions noted and turgor normal GENERAL SKIN EXAM: no rashes or lesions noted and turgor normal Urinary Catheter Management: Estes: Cath Placed During This Visit: yes, but has since been removed by the nurse Reason for Continuing Indwelling Catheter: Perioperative Use in Selected Surgeries Urinary Catheter Date of Insertion: 04/27/25 Urinary Catheter Time of Insertion: 14:06 Date Urinary Catheter Removed: 04/29/25 Time Urinary Catheter Discontinued: 05:18 Discharge Data Studies Completed and Pending Completed Studies During Hospitalization Category Date Time Status XR chest 1V portable [id number] Stat Exams 04/27/25 13:46 Completed XR hip LT 2-3V wo/w pel* [id number] Routine Exams 04/28/25 14:13 Completed XR hip LT 2-3V wo/w pel* [id number] Stat Exams 04/27/25 13:27 Completed Pending at discharge Category Date Time Status Leukocyte Reduced RBC Routine Lab 05/01/25 07:48 Ordered Type and Screen Routine Lab 05/01/25 07:48 Ordered Radiology Impressions Chest X-Ray 04/27/25 13:46 IMPRESSION: Stable chest without acute abnormality. Hip/Pelvis X-Ray 04/28/25 14:13 IMPRESSION: Hip fracture with internal fixation without abnormality. Laboratory Results WBC 8.62 10^3/uL (3.29-11.43) 05/01/25 04:29 RBC 2.18 10^6/uL (3.85-5.65) L 05/01/25 04:29 Hgb 7.00 g/dL (11.27-16.99) L 05/01/25 04:29 Hct 20.9 % (36-47) L 05/01/25 04:29 MCV 95.9 fl (85-98) 05/01/25 04:29 MCH 32.1 pg (27-33) 05/01/25 04:29 MCHC 33.5 g/dL (30-55) D 05/01/25 04:29 RDW 13.7 % (12.1-15.1) 05/01/25 04:29 Plt Count 191 10^3/cmm (157-399) 05/01/25 04:29 MPV 11.1 fL (7.4-10.4) H 05/01/25 04:29 Neut % (Auto) 56.2 % 05/01/25 04:29 Lymph % (Auto) 23.1 % 05/01/25 04:29 [place] % (Auto) 10.4 % 05/01/25 04:29 Eos % (Auto) 9.6 % 05/01/25 04:29 Baso % (Auto) 0.2 % 05/01/25 04:29 Neut # (Auto) 4.84 10^3/uL (1.8-7.7) 05/01/25 04:29 Lymph # (Auto) 2.0 10^3/uL (0.8-4.8) 05/01/25 04:29 [place] # (Auto) 0.9 10^3/uL (0.2-0.9) 05/01/25 04:29 Eos # (Auto) 0.8 10^3/uL (0.0-0.8) 05/01/25 04:29 Baso # (Auto) 0.0 10^3/uL (0.0-0.1) 05/01/25 04:29 Nucleated RBC % (auto) 0 % 05/01/25 04:29 Nucleated RBCs # 0.0 /100WBC 05/01/25 04:29 PT 12.80 SECONDS (12.1-14.9) 04/27/25 14:04 INR 0.90 (0.8-1.2) 04/27/25 14:04 APTT 28.6 SECONDS (23.9-36.7) 04/27/25 14:04 Sodium 138 mmol/L (136-145) 05/01/25 04:29 Potassium 4.1 mmol/L (3.5-5.1) 05/01/25 04:29 Chloride 104 mmol/L (98-107) 05/01/25 04:29 Carbon Dioxide 26 mmol/L (22-29) 05/01/25 04:29 Anion Gap 12.1 (5-19) 05/01/25 04:29 BUN 14 mg/dL (8-23) 05/01/25 04:29 Creatinine 0.5 mg/dL (0.5-0.9) 05/01/25 04:29 GFR Calculation Not Reportable 05/01/25 04:29 Glucose 118 mg/dL (65-115) H 05/01/25 04:29 Calculated Osmolality 288 mOsm/kg (285-295) 05/01/25 04:29 Calcium 8.5 mg/dL (8.5-10.5) 05/01/25 04:29 Magnesium 2.0 mg/dL (1.7-2.3) 04/30/25 06:44 Iron 92 ug/dL (37-145) 04/27/25 14:04 TIBC 323 mcg/dl 04/27/25 14:04 % Saturation 28.4 % (20-50) 04/27/25 14:04 Unsat Iron Binding 231 ug/dL (112-347) 04/27/25 14:04 Total Bilirubin 0.3 mg/dL (0.15-1.2) 05/01/25 04:29 AST 23 U/L (0-32) 05/01/25 04:29 ALT 10 U/L (0-33) 05/01/25 04:29 Alkaline Phosphatase 76 U/L (35-105) 05/01/25 04:29 Total Protein 5.4 g/dL (6.6-8.7) L 05/01/25 04:29 Albumin 3.3 g/dL (3.5-5.2) L 05/01/25 04:29 Globulin 2.1 g/dL (1.3-4.6) 05/01/25 04:29 Urine Color Yellow (Yellow) 04/27/25 14:20 Urine Appearance Clear (CLEAR) 04/27/25 14:20 Urine pH 7.5 (5-7) 04/27/25 14:20 Ur Specific [place] 1.007 (1.005-1.030) 04/27/25 14:20 Urine Protein Negative (Negative) 04/27/25 14:20 Urine Glucose (UA) Negative (Normal) 04/27/25 14:20 Urine Ketones Negative (Negative) 04/27/25 14:20 Urine Blood Negative (Negative) 04/27/25 14:20 Urine Nitrate Negative (Negative) 04/27/25 14:20 Urine Bilirubin Negative (Negative) 04/27/25 14:20 Urine Urobilinogen 0.2 mg/dL (Negative) 04/27/25 14:20 Ur Leukocyte Esterase Negative (Negative) 04/27/25 14:20 Urine RBC 0-2 /hpf (0-2) 04/27/25 14:20 Urine WBC 0-5 /hpf (0-5) 04/27/25 14:20 Ur Squamous Epith Cells 0-5 /hpf (0-5) 04/27/25 14:20 Amorphous Sediment Not Reportable 04/27/25 14:20 Urine Bacteria None seen /hpf (NONE) 04/27/25 14:20 Hyaline Casts 0.81 /lpf 04/27/25 14:20 Vitals Last Vital Signs Temp 98.0 F 05/01/25 08:27 Pulse 81 05/01/25 08:27 Resp 17 05/01/25 05:15 BP 147/71 05/01/25 08:27 Pulse Ox 96 05/01/25 08:27 O2 Del Method Room Air 05/01/25 08:27 O2 Flow Rate 5 04/28/25 13:30 Discharge Plan Discharge Patient Disposition: Xfer SNF Condition: Stable Prescriptions: New hydrocodone-acetaminophen 5-325 mg tablet 1 tab PO Q6H PRN (Reason: pain) Qty: 30 0RF ferrous sulfate 324 mg (65 mg iron) tablet,delayed release (DR/EC) 324 mg PO DAILY Qty: 30 0RF Continued aspirin 81 mg tablet,delayed release (DR/EC) 81 mg PO DAILY lovastatin 20 mg tablet 10 mg PO DAILY metoprolol tartrate 25 mg tablet 12.5 mg PO BID ascorbic acid (vitamin C) 500 mg capsule 500 mg PO DAILY latanoprost 0.005 % drops 1 drp ophthalmic (eye) DAILY amlodipine 10 mg tablet 10 mg PO DAILY Qty: 90 3RF magnesium oxide 250 mg magnesium tablet 250 mg PO DAILY All Day Allergy (cetirizine) 10 mg capsule 10 mg PO DAILY PRN (Reason: allergies) cholecalciferol (vitamin D3) [Vitamin D3] 50 mcg (2,000 unit) Tablet 50 mcg PO DAILY mv,Ca,min-folic acid-vit K1 400-20 mcg Tablet 1 tab PO DAILY Discharge Order = DC NOW: Discharge Order (Routine); Ordered 05/01/25 Ordered By: Nataly Thakur Other Ambulatory Orders: Hematocrit (Routine) Timeframe: 1 Week Facility: [facility] - Location: Lab - Main Lab Ordered By: Nataly Thakur Hemoglobin (Routine) Timeframe: 1 Week Facility: [facility] - Location: Lab - Main Lab Ordered By: Nataly Thakur Referrals: [facility] [Outside] Gil Aleman MD [Physician, Orthopedics] - 05/19/25 11:15 am Robert Rutledge MD [Primary Care Provider, [facility]] Discharge Diet: Cardiac Discharge Activity: Limit activity as instructed Patient Instructions: Iron Supplements (By mouth), Hydrocodone/Acetaminophen (By mouth), Acute Wound Care (DC), Opioid Safety, Post Anesthesia Care, Patient Portal & [place]em[place] Instructions Discharge Attestations Time Spent in Discharge Care*: greater than 30 min Quality Metrics Clinical Quality Measures [ No reported AMI, CVA or VTE this stay] Coding Level of Care Code 46534 Diagnoses Closed displaced intertrochanteric fracture of left femur, initial encounter S72.142A
--- NOTE | 2025-05-01 11:21 | PC.SOCIAL ---
IMM Updated Updated pt on IMM. No questions voiced. Provided a copy to pt. Initialed, dated, & timed copy in chart.
--- NOTE | 2025-05-01 16:22 | PC.OT ---
No OT tx due to planned discharge and pt receiving blood; will attempt OT tx again at later time.
[2025-05-01 18:12] LABS: Hematocrit 27.5 % (36-47); Hemoglobin 8.90 g/dL (11.27-16.99)
[2025-05-01 19:56] LABS: SARS Covid-2 Antigen Negative (Negative)
--- NOTE | 2025-05-01 20:02 | PC.NURSE ---
Discharge Patient rapid covid test negative. Results faxed to [facility] and Sherry at [facility] notified by this nurse. Patient discharged at this time with all appropriate belongings and packet for [facility] staff. Patient taken by wheelchair by AYDIN Lacey to personal vehicle accompanied by family. Family to take patient to [facility].
== END 2025-05-01 20:05 | disposition skilled nursing facility (03) | DRG 482 ==
LOC: ER 15:20 → MEDSURG 15:25
PROVIDERS: Orthopaedic Surgery; Admitting Provider Student in an Organized Health Care Education/Training Program; Emergency Provider Family Medicine; PCP Family Medicine; Visit Provider Registered Nurse
PROC: 30233N1 Transfusion of Nonautologous Red Blood Cells into Peripheral Vein, Percutaneous Approach (ICD-10-PCS; CPT 27245; principal; 2025-04-28 12:00)
DX: S72.142A Displaced intertrochanteric fracture of left femur, initial encounter for closed fracture (principal); W19.XXXA Unspecified fall, initial encounter; Y92.009 Unspecified place in unspecified non-institutional (private) residence as the place of occurrence of the external cause; I10 Essential (primary) hypertension; H40.9 Unspecified glaucoma; I65.22 Occlusion and stenosis of left carotid artery; Z79.82 Long term (current) use of aspirin; Z88.2 Allergy status to sulfonamides; I95.81 Postprocedural hypotension; D50.9 Iron deficiency anemia, unspecified
CPT/HCPCS: 36415; 36430; 51702; 71045; 73502; 76000; 80053; 81001; 83540; 83550; 83735; 85014; 85018; 85025; 85610; 85730; 86850; 86900; 86920; 87426; 97110; 97116; 97161; 97165; 97530; 99285; C1713; C1776; J0690; J1885; J2704; J3010; J3490; J7030; J9999; P9016

== ENCOUNTER → 2025-05-19 11:23 | Outpatient (BNVA) | payer MEDICARE, OTHER, SELFPAY | PROVIDERS: PCP Family Medicine; Visit Provider Orthopaedic Surgery | DX: S72.142D Displaced intertrochanteric fracture of left femur, subsequent encounter for closed fracture with routine healing (principal); X58.XXXD Exposure to other specified factors, subsequent encounter; Z98.890 Other specified postprocedural states | CPT/HCPCS: 73502; 99024 ==